=== PATIENT | female | born 1995 | race Caucasian/White ===

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

== ENCOUNTER 2017-01-14 10:24 | Emergency (ER) | payer OTHER ==
[2017-01-14] MEDS ORDERED: Ondansetron INJ* 2 MG/ML VIAL IV ONE (11:00)
[2017-01-14] MEDS: NS 0.9% 1000 ML* 2,000 ML IV ONE (12:04)
[2017-01-14 12:15] LABS: Hematocrit 39 % (35-47); Hemoglobin 13.1 g/dl (12.0-16.0); Mean Corpuscular HGB Conc 34 g/dl (31-36); Mean Corpuscular Hemoglobin 30 pg (27-31); Mean Corpuscular Volume 90 fL (80-97); Mean Platelet Volume 8 um3 (7.4-10.4); Red Blood Count 4.33 10^6/ul (4.0-5.4); Red Cell Distribution Width 13 % (10.5-15); White Blood Count 22.4 10^3/ul (3.5-10.8)
[2017-01-14 12:23] LABS: Add Diff/Slide Review? Slide Review Added; Comments Flag Yes
[2017-01-14 12:29] LABS: ALT 17 U/L (7-52); AST 17 U/L (13-39); Albumin 4.2 g/dL (3.2-5.2); Alkaline Phosphatase 52 U/L (34-104); Anion Gap 10 mmol/L (2-11); BUN/Creatinine Ratio 22.6 (8-20); Blood Urea Nitrogen 14 mg/dL (6-24); C Reactive Protein 16.39 mg/L (< 5.00); CO2 Carbon Dioxide 22 mmol/L (22-32); Calcium 9.7 mg/dL (8.6-10.3); Chloride 100 mmol/L (101-111); EGFR African American 159.5 (>60); Globulin 3.5 g/dL (2-4); Glucose 106 mg/dL (70-100); Lipase < 10 U/L (11.0-82.0); Potassium 3.3 mmol/L (3.5-5.0); Sodium 132 mmol/L (133-145); Total Protein 7.7 g/dL (6.4-8.9)
[2017-01-14 12:42] LABS: Immature Granulocytes 15 % (0-9); Neutrophil % 83 % (38-83); RBC Morphology Normal (Normal)
[2017-01-14] MEDS ORDERED: Potassium Chlor TAB* 20 MEQ TAB.ER PO ONE (13:17)
[2017-01-14 14:58] LABS: Urine Bilirubin Negative (Negative); Urine Glucose Negative (Negative); Urine Nitrite Negative (Negative)
[2017-01-14] MEDS ORDERED: NS 0.9% 1000 ML* 1,000 ML IV SCH (15:30)
[2017-01-14 17:02] LABS: Hematocrit 31 % (35-47); Hemoglobin 10.5 g/dl (12.0-16.0); Mean Corpuscular HGB Conc 34 g/dl (31-36); Mean Corpuscular Hemoglobin 31 pg (27-31); Mean Corpuscular Volume 91 fL (80-97); Mean Platelet Volume 9 um3 (7.4-10.4); Red Blood Count 3.41 10^6/ul (4.0-5.4); Red Cell Distribution Width 13 % (10.5-15); White Blood Count 18.3 10^3/ul (3.5-10.8)
[2017-01-14 18:10] VITALS: BP 115/56
--- NOTE | 2017-01-15 15:18 | ED ---
Kim Pepe Nilda, scribed for Alpesh Young MD on 01/14/17 at 1405 . GI/ HPI - HPI Summary HPI Summary: This patient is a 21 year old F presenting to [facility] accompanied by boyfriend with a chief complaint of vomiting since 0300 today. Patient reports diarrhea, nausea, and diffuse abdominal pain, but denies vaginal bleeding. The patient rates the pain 9/10 in severity. Symptoms aggravated and alleviated by nothing. Pt states she is 16 weeks with her second . First resulted in miscarriage. - History of Current Complaint Chief Complaint: EDNauseaVomitDiarrh Time Seen by Provider: 01/14/17 11:03 Stated Complaint: VOMITING Hx Obtained From: Patient Hx Last Menstrual Period: 09/20/16 Onset/Duration: Started Hours Ago, Still Present Timing: Intermittent Current Severity: Severe Pain Intensity: 9 Location of Pain: Diffuse Associated Signs and Symptoms: Positive: Other: - N/V/D, Abd pain; negative vaginal bleeding. Aggravating Factor(s): Nothing Alleviating Factor(s): Nothing - Allergy/Home Medications Allergies/Adverse Reactions: Allergies Allergy/AdvReac Type Severity Reaction Status Date / Time No Known Allergies Allergy Verified 01/14/17 10:39 PMH/Surg Hx/FS Hx/Imm Hx Endocrine/Hematology History: Denies: Hx Anticoagulant Therapy, Hx Blood Disorders, Hx Diabetes, Hx Thyroid Disease, Hx Anemia, Hx Unexplained Bleeding Cardiovascular History: Denies: Hx Hypertension Respiratory History: Reports: Hx Asthma Denies: Hx Chronic Obstructive Pulmonary Disease (COPD) GI History: Denies: Hx Ulcer History: Denies: Hx Renal Disease Musculoskeletal History: Reports: Other Musculoskeletal History - RIGHT ANKLE FRACTURE; Rt wrist ganglion cyst removed by Vazquez Sensory History: Reports: Hx Contacts or Glasses - GLASSES Denies: Hx Hearing Aid Opthamlomology History: Reports: Hx Contacts or Glasses - GLASSES Neurological History: Reports: Hx Migraine Psychiatric History: Reports: Hx Anxiety - NO MEDICATION, Hx of Violent Episodes Against Others Denies: Hx Eating Disorder, Hx Substance Abuse - Surgical History Surgery Procedure, Year, and Place: GANGLION CYST REMOVED-06/2015. Rt wrist surgery x2 Hx Anesthesia Reactions: No Infectious Disease History: Unable to Obtain/Confirm Infectious Disease History: Denies: Hx Clostridium Difficile, Hx Hepatitis, Hx Human Immunodeficiency Virus (HIV), Hx of Known/Suspected MRSA, Hx Shingles, Hx Tuberculosis, Hx Known/ Suspected VRE, Hx Known/Suspected VRSA, History Other Infectious Disease, Traveled Outside the [place] in Last 30 Days - Family History Known Family History: Positive: Hypertension, Other - aunt - anxiety Negative: Cardiac Disease, Diabetes Family History: mood d/o, bipolar d/o, anxiety d/o, depression - Social History Alcohol Use: None Hx Substance Use: No - tried marijuana once in past Substance Use Type: Reports: None Hx Tobacco Use: No Smoking Status (MU): Never Smoked Tobacco Review of Systems Positive: Abdominal Pain, Vomiting, Diarrhea, Nausea Positive: other - 16 weeks ; negative vaginal bleeding All Other Systems Reviewed And Are Negative: Yes Physical Exam - Summary Physical Exam Summary: VITAL SIGNS: Reviewed. GENERAL: Patient is a well-developed and nourished female who is lying comfortable in the stretcher. Patient is not in any acute respiratory distress. HEAD AND FACE: Normocephalic and atraumatic. EYES: PERRLA, EOMI x 2, No injected conjunctiva. EARS: Hearing grossly intact. Ear canals and tympanic membranes are WNL. MOUTH: Oropharynx within normal limits. NECK: Supple, trachea is midline, no adenopathy, no JVD. CHEST: Symmetric, no tenderness at palpation LUNGS: Clear to auscultation bilaterally. No wheezing or crackles. CVS: RRR, S1 and S2 present, no murmurs or gallops appreciated. ABDOMEN: Soft, non-tender. Abd distention below umbilicus secondary to . Positive bowel sounds. No rebound no guarding, and no masses palpated. No abdominal bruit or pulsations. EXTREMITIES: FROM in all major joints, no edema, no cyanosis or clubbing. NEURO: Alert and oriented x 3. No acute neurological deficits. Speech is normal. SKIN: Dry and warm Triage Information Reviewed: Yes Vital Signs On Initial Exam: Initial Vitals Temp Pulse Resp BP Pulse Ox 98.5 F 120 16 112/59 97 01/14/17 10:39 01/14/17 10:39 01/14/17 10:39 01/14/17 10:39 01/14/17 10:39 Vital Signs Reviewed: Yes Diagnostics - Vital Signs Vital Signs Temp Pulse Resp BP Pulse Ox 01/14/17 13:46 102 105/44 100 01/14/17 13:30 104 100 01/14/17 13:00 97 110/46 100 01/14/17 12:30 97 103/60 100 01/14/17 12:00 109 118/73 98 01/14/17 11:40 98.3 F 01/14/17 11:33 115 98 01/14/17 11:32 108/78 01/14/17 10:39 98.5 F 120 16 112/59 97 - Laboratory Lab Results: Lab Results 01/14/17 01/14/17 Range/Units 12:05 12:05 WBC 22.4 H (3.5-10.8) 10^3/ul RBC 4.33 (4.0-5.4) 10^6/ul Hgb 13.1 (12.0-16.0) g/dl Hct 39 (35-47) % MCV 90 (80-97) fL MCH 30 (27-31) pg MCHC 34 (31-36) g/dl RDW 13 (10.5-15) % Plt Count 229 (150-450) 10^3/ul MPV 8 (7.4-10.4) um3 Immature Gran % (Auto) 15 H (0-9) % Neut % (Auto) 97.0 H (38-83) % Lymph % (Auto) 1.2 L (25-47) % Calhoun % (Auto) 1.5 (1-9) % Eos % (Auto) 0.1 (0-6) % Baso % (Auto) 0.2 (0-2) % Absolute Neuts (auto) 21.8 H (1.5-7.7) 10^3/ul Absolute Lymphs (auto) 0.3 L (1.0-4.8) 10^3/ul Absolute Monos (auto) 0.3 (0-0.8) 10^3/ul Absolute Eos (auto) 0 (0-0.6) 10^3/ul Absolute Basos (auto) 0.1 (0-0.2) 10^3/ul Absolute Nucleated RBC 0 10^3/ul Neutrophils % 83 (38-83) % Band Neutrophils % 15 H (0-8) % Monocytes % 2 (0-13) % Nucleated RBC % 0 Normal RBC Morphology Normal (Normal) Sodium 132 L (133-145) mmol/L Potassium 3.3 L (3.5-5.0) mmol/L Chloride 100 L (101-111) mmol/L Carbon Dioxide 22 (22-32) mmol/L Anion Gap 10 (2-11) mmol/L BUN 14 (6-24) mg/dL Creatinine 0.62 (0.51-0.95) mg/dL Est GFR ( Amer) 159.5 (>60) Est GFR (Non-Af Amer) 124.0 (>60) BUN/Creatinine Ratio 22.6 H (8-20) Glucose 106 H (70-100) mg/dL Calcium 9.7 (8.6-10.3) mg/dL Total Bilirubin 0.40 (0.2-1.0) mg/dL AST 17 (13-39) U/L ALT 17 (7-52) U/L Alkaline Phosphatase 52 (34-104) U/L C-Reactive Protein 16.39 H (< 5.00) mg/L Total Protein 7.7 (6.4-8.9) g/dL Albumin 4.2 (3.2-5.2) g/dL Globulin 3.5 (2-4) g/dL Albumin/Globulin Ratio 1.2 (1-3) Lipase < 10 L (11.0-82.0) U/L Result Diagrams: 01/14/17 15:40 01/14/17 12:05 Lab Statement: Any lab studies that have been ordered have been reviewed, and results considered in the medical decision making process. Re-Evaluation - Re-Evaluation First Eval Re-Evaluation Time: 14:00 Comment: Pt no longer feels nauseous but abd cramps remain. GIGU Course/Dx - Course Course Of Treatment: This patient is a 21 year old F presenting to [facility] accompanied by boyfriend with a chief complaint of vomiting since 0300 today. Patient reports diarrhea, nausea, and diffuse abdominal pain, but denies vaginal bleeding. The patient rates the pain 9/10 in severity. Symptoms aggravated and alleviated by nothing. Pt states she is 16 weeks with her second . First resulted in miscarriage. In the ED course , the patient was given IV fluids, Zofran, and Potassium Chlor. Pt does not want to wait for consult with Dr. Guzmán. Patient no longer has Nausea and Vomiting. She has been here for almost 6 hours and has had no diarrhea. WBC count decreased from 23 to 18 which I think may be because of gastroenteritis. She was advised to return to ED if she develops fever, chills, N/V, abd pain, or vaginal bleeding. The pt is hemodynamically stable, alert and oriented x3. Patient will be D/C with a Dx of nausea, vomiting, diarrhea, and pregancy and a follow up with [facility]. I discussed all the findings and test results with the patient. Patient was instructed to return to the emergency room immediately if any of the symptoms return or worsens. Plan of care was discussed with the patient and understands and agrees. All questions were answered at patient satisfaction. There were no further complaints or concerns. After patient left I discussed the case with Dr. Guzmán and agrees with management and disposition. - Diagnoses Provider Diagnoses: Nausea and vomiting during , Diarrhea, Discharge - Discharge Plan Condition: Stable Disposition: HOME Prescriptions: Doxylamine/Pyridoxine(NF) [Diclegis (NF)] 1 tab PO BID PRN #15 tab PRN Reason: Vomiting Patient Education Materials: Nausea and Vomiting in (ED), Acute Diarrhea (ED) Forms: *Work Release Referrals: Too Frank NP [Primary Care Provider] - 1 Week Additional Instructions: Follow up with your [facility] this week. RETURN TO THE EMERGENCY DEPARTMENT FOR CHANGING OR WORSENING SYMPTOMS. The documentation as recorded by the Kim mckenna Nilda accurately reflects the service I personally performed and the decisions made by me, Alpesh Young MD.
== END 2017-01-14 18:11 | disposition home or self-care (01) ==
LOC: ED 10:24
DX: O21.0 Mild hyperemesis gravidarum (principal); O26.892 Other specified pregnancy related conditions, second trimester; Z3A.16 16 weeks gestation of pregnancy; R19.7 Diarrhea, unspecified
CPT/HCPCS: 36415; 80053; 81003; 83690; 85025; 86140; 96360; 96374; 99282; A9270-GY; J2405

== ENCOUNTER 2017-06-21 09:35 | Inpatient (IN) | payer MEDICAID, OTHER ==
--- NOTE | 2017-06-21 12:26 | HP ---
General Information - General Information Maternal Age: 22 Grav: 2 Para: 0 SAB: 1 IEA: 0 Estimated Due Date: 06/27/17 Determined By: LMP Gestational Age in Weeks and Days: 39 Weeks and 1 Days Maternal Blood Type and Rh: A Positive - Results this Serology/RPR Result: Non-Reactive Rubella Result: Immune HBsAg Result: Negative HIV Result: Negative GBS Culture Result: Negative Past Medical History Delivery History: See Records Pertinent Past Medical History: See Records Past Medical History Comment: asthma Pertinent Past Surgical History: See Records Past Surgical History Comment: ganglion cysts x 2 removed Pertinent Family History: See Records - CVD, Emphysema Review of Systems Constitutional: Comfortable CV Complaint: No Respiratory: Shortness of Breath: No Gastrointestinal: No Nausea/Vomiting, Normal Bowel Movement Genitourinary: Leaking Fluid, No Dysuria, No Bleeding Musculoskeletal: Back Pain Neurological: No Headache, No Visual Changes Movement: Normal Exam Allergies/Adverse Reactions: Allergies No Known Allergies Allergy (Verified 06/21/17 09:57) T:97.6, P:115, R:17, BP:138/77, O2:100 Lab Values - Entire Visit: Laboratory Tests 06/21/17 09:50 Vag Amniotic Fld Detect Positive - Measurements Height: 5 ft 5 in Weight: 184 lb Weight in lbs: 184 Body Mass Index (BMI): 30.6 Pre- Weight: 163 lb Weight Gained This : 21 lbs and 0 ozs - Exam Abdomen: No Upper Quadrant Pain Breast: Breast Exam Deferred CVA: No CVA Tenderness Extremities: No Edema Heart: Normal Rhythm/Heart Sounds HEENT: No Significant Findings Lungs: Clear Bilaterally Rectal: Rectal Exam Deferred Reflexes: DTR 2+ Thyroid: No Thyromegaly - Abdominal Exam Abdomen Exam: Fundal Height Consistent with Dates - Ultrasound/Biophysical Profile Ultrasound Status: Not Done Targeted Exam Findings Membrane Status: SROM Amniotic Fluid Evaluation: Positive ROM Plus Bleeding/Discharge: None EFM Findings - External Monitor Findings Baseline Heart Rate: 145 External Monitor Findings: Accelerations Present, No Pattern of Variable or Late Decelerations, Variability Moderate, Baseline Stable Contractions: Irregular, < 45 Seconds Assessment/Plan - Reason for Visit Reason for Visit: SROM - Plan Plan: Early Labor, Cervical Ripening - Date/Time of Admission Date of Admission: 06/21/17 Time of Admission: 12:00
[2017-06-21] MEDS ORDERED: Misoprostol TAB* 100 MCG ONE (16:55)
--- NOTE | 2017-06-21 17:26 | PN ---
Progress Note - Progress Note Date of Service: 06/21/17 SOAP: Subjective: Pt reports contractions are still very irregular and haven't increased in intensity or frequency. Pt reports continued LOF and positive FM. Pt denies fever, or vaginal bleeding. Reviewed risks versus benefits of augmentation and pt elects to continue with misoprostol sublingual. Objective: []127/63, P: 100bpm FHT: Baseline 145bpm, +accels, -decels, mod variability, ctx irregular. Assessment: []22 y.o. 39w 1 d EGA, PROM, GBS negative. NST Cat 1 Plan: []1) 50mcg misoprostol sublingual 2) Reviewed Risks/Benefits of augmentation of labor 3) Advised pt to ambulate after initial hour of observation 4) Reevaluate PRN
[2017-06-21] MEDS ORDERED: Buffered Lidocaine 0.9% SYRIN* 5 ML/SYR SYRINGE ONE (18:04)
[2017-06-21 18:41] LABS: ABS Basophils 0.1 10^3/ul (0-0.2); ABS Eosinophils 0.4 10^3/ul (0-0.6); ABS Lymphocytes 2.2 10^3/ul (1.0-4.8); ABS Monocytes 1.5 10^3/ul (0-0.8); ABS Neutrophils 15.6 10^3/ul (1.5-7.7); ABS Nucleated RBC 0 10^3/ul; Hematocrit 37 % (35-47); Hemoglobin 12.2 g/dl (12.0-16.0); Lymphocyte % 11.2 % (25-47); Mean Corpuscular HGB Conc 33 g/dl (31-36); Mean Corpuscular Hemoglobin 30 pg (27-31); Mean Corpuscular Volume 90 fL (80-97); Mean Platelet Volume 8.8 um3 (7.4-10.4); Nucleated Red Blood Cells % 0; Platelet Count 252 10^3/ul (150-450); Red Blood Count 4.07 10^6/ul (4.0-5.4); Red Cell Distribution Width 13 % (10.5-15); White Blood Count 19.8 10^3/ul (3.5-10.8)
[2017-06-21] MEDS ORDERED: fentaNYL* 50 MCG/ML 2 ML VIAL (100 MCG VIAL) IV SLOW PU PRN (19:33)
[2017-06-21] MEDS ORDERED: fentaNYL* 50 MCG/ML 2 ML VIAL (100 MCG VIAL) ONE (19:36)
[2017-06-21] MEDS ORDERED: OBEPIDURAL* 250 ML EPIDURAL ONE (19:50)
--- NOTE | 2017-06-21 19:50 | PN ---
Progress Note - Progress Note Date of Service: 06/21/17 Note: S: Pt requesting pain medication and epidural. Pt crying through contractions, reporting increased pain on the left side. O: BP: 127/63 P:100 T:98.5 Cervix: 3/80/-1 head well applied, cervix midline FHT: Baseline 145bpm, +accels, -decels, mod. variability. Ctx q 3-4 min A: 22 y.o. 39w1d EGA early labor P: 1) Fentanyl 25mcg IV slow push 2) Epidural 3) Position changes 4) Reevaluate PRN
[2017-06-21] MEDS ORDERED: Sodium Citrate/Citric Acid* 15 ML UDC PO PRN (20:12)
[2017-06-21] MEDS ORDERED: EPHEDrine (Pressors)* 50 MG/ML VIAL IV PUSH PRN (20:12)
[2017-06-21] MEDS ORDERED: Famotidine TAB* 20 MG PO PRN (20:12)
[2017-06-21] MEDS ORDERED: Phenylephrine IV* 40 MCG/ML 10 ML SYRINGE IV PUSH PRN (20:12)
[2017-06-21] MEDS ORDERED: OBEPIDURAL* 250 ML EPIDURAL SCH (21:00)
--- NOTE | 2017-06-22 02:52 | PN ---
Progress Note - Progress Note Date of Service: 06/21/17 Note: S: Pt reports increased pressure in back and some in vagina. Pt denies pain at this time but is "feeling more". O: T:98.2, BP: 120/70 Cervix: 7/90/-1 FHT: 140bpm, +accels, -decels, mod variability. Ctx q 4-5 min. A: 22 y.o. at 39w2d EGA active labor, inadequate ctx. NST:cat 1 P: 1) Anesthesiologist called to correct air in line 2) Pitocin once epidural is functioning again 3) Position changes to encourage decent 4) Reevaluate PRN.
[2017-06-22] MEDS ORDERED: Oxytocin in LR* 20 UNITS/1,000 ML BAG IVPB SCH ×2 (03:00→12:00)
--- NOTE | 2017-06-22 08:19 | PN ---
Progress Note - Progress Note Date of Service: 06/22/17 SOAP: Subjective: []Pt reports a little pressure. Objective: []BP: 128/71, P:105, R:18, T:98.8 Cervix: 10/100/+1 FHT: 130bpm, +accels, mod variability, early decels and occasional variable decels, ctx q 3 min. Assessment: []22 y.o. at 39w 2 d pushing, VSS Plan: 1) Continue coached pushing 2) Position changes PRN 3) Reevaluate PRN []
[2017-06-22] MEDS ORDERED: Acetaminophen TAB* 325 MG PO PRN (11:02)
[2017-06-22] MEDS ORDERED: Misoprostol TAB* 200 MCG PR ONE (11:02)
[2017-06-22] MEDS ORDERED: Glycerin ADULT SUPP PR PRN (11:02)
[2017-06-22] MEDS: Dibucaine 1% 28.35 GM TUBE PR PRN (12:24)
[2017-06-22] MEDS: Witch Hazel PAD* JAR TOPICAL PRN (12:24)
[2017-06-22] MEDS ORDERED: Simethicone TAB* 80 MG TAB.CHEW PO SCH (12:30)
[2017-06-22] MEDS: Docusate CAP* 100 MG PO SCH ×2 (15:27→21:45)
[2017-06-23 07:11] LABS: Hematocrit 28 % (35-47); Hemoglobin 9.3 g/dl (12.0-16.0); Mean Corpuscular HGB Conc 33 g/dl (31-36); Mean Corpuscular Hemoglobin 30 pg (27-31); Mean Corpuscular Volume 90 fL (80-97); Mean Platelet Volume 8.3 um3 (7.4-10.4); Platelet Count 186 10^3/ul (150-450); Red Blood Count 3.11 10^6/ul (4.0-5.4); Red Cell Distribution Width 13 % (10.5-15); White Blood Count 20.5 10^3/ul (3.5-10.8)
[2017-06-23 07:33] LABS: ABS Basophils 0.1 10^3/ul (0-0.2); ABS Eosinophils 0.3 10^3/ul (0-0.6); ABS Lymphocytes 2.8 10^3/ul (1.0-4.8); ABS Monocytes 1.6 10^3/ul (0-0.8); ABS Neutrophils 15.9 10^3/ul (1.5-7.7); ABS Nucleated RBC 0 10^3/ul; Eosinophil % 1.3 % (0-6); Lymphocyte % 13.4 % (25-47); Nucleated Red Blood Cells % 0
[2017-06-23] MEDS: Ibuprofen TAB* 600 MG PO PRN (08:19)
[2017-06-23] MEDS: Docusate CAP* 100 MG PO SCH ×3 (08:19→19:55)
[2017-06-23] MEDS: Ferrous Gluconate TAB* 324 MG TAB PO SCH ×2 (08:19→19:55)
[2017-06-23] MEDS: Dibucaine 1% 28.35 GM TUBE PR PRN (12:13)
[2017-06-24 08:08] VITALS: BP 105/55
[2017-06-24] MEDS: Dibucaine 1% 28.35 GM TUBE PR PRN (08:54)
[2017-06-24] MEDS: Ibuprofen TAB* 600 MG PO PRN (08:54)
[2017-06-24] MEDS: Docusate CAP* 100 MG PO SCH (08:54)
[2017-06-24] MEDS: Witch Hazel PAD* JAR TOPICAL PRN (08:54)
[2017-06-24] MEDS: Ferrous Gluconate TAB* 324 MG TAB PO SCH (08:57)
== END 2017-06-24 12:54 | disposition home or self-care (01) | DRG 560 ==
LOC: MCHOBOUT 09:35 → MCHOB 11:59
PROVIDERS: ADMIT Midwife; ATTEND Obstetrics & Gynecology
PROC: 4A1HX4Z Monitoring of Products of Conception, Cardiac Electrical Activity, External Approach (ICD-10-PCS; principal; 2017-06-22)
PROC: 10E0XZZ Delivery of Products of Conception, External Approach (ICD-10-PCS; 2017-06-22)
PROC: 0HQ9XZZ Repair Perineum Skin, External Approach (ICD-10-PCS; 2017-06-22)
PROC: 0UQMXZZ Repair Vulva, External Approach (ICD-10-PCS; 2017-06-22)
DX: O42.02 Full-term premature rupture of membranes, onset of labor within 24 hours of rupture (principal); O70.0 First degree perineal laceration during delivery; Z83.6 Family history of other diseases of the respiratory system; Z3A.39 39 weeks gestation of pregnancy; Z37.0 Single live birth; O90.81 Anemia of the puerperium; O71.82 Other specified trauma to perineum and vulva; O76 Abnormality in fetal heart rate and rhythm complicating labor and delivery
CPT/HCPCS: 36415; 84112; 85025; 86850; 86900; 86901; A9270-GY; J3010; S0191

== ENCOUNTER 2017-12-31 15:45 | Emergency (ER) | payer MEDICAID, OTHER ==
[2017-12-31 16:08] VITALS: BP 141/81
--- NOTE | 2017-12-31 16:36 | ED ---
Skin Complaint - HPI Summary HPI Summary: Pt is a 22 y/o female who presents to the ED c/o abscess. She states she was recently cleaning off spider webs, so she thinks she was bitten by a spider twice. Pt has two red areas on the right side of her abdomen, with one larger than the other. She tried to pop the larger abscess, which made it worse. Pt states the abscess has dark yellow discharge and is painful. She denies any IV drug use. - History of Current Complaint Chief Complaint: EDRashSkinAbscess Time Seen by Provider: 12/31/17 16:24 Stated Complaint: SPIDER BITE Hx Obtained From: Patient Hx Last Menstrual Period: 09/20/16 Timing: Constant Current Severity: Severe Pain Intensity: 9 Pain Scale Used: 0-10 Numeric Skin Location: Abdomen - right side Character: Swelling, Pain, Redness Aggravating Symptom(s): Touch, Other: - Trying to "pop" Associated Signs & Symptoms: Negative Related History: Insect Bite/Sting - Possible spider bite - Allergy/Home Medications Allergies/Adverse Reactions: Allergies Allergy/AdvReac Type Severity Reaction Status Date / Time No Known Allergies Allergy Verified 12/31/17 16:08 PMH/Surg Hx/FS Hx/Imm Hx Endocrine/Hematology History: Reports: Hx Anemia - during Denies: Hx Anticoagulant Therapy, Hx Blood Disorders, Hx Diabetes, Hx Thyroid Disease, Hx Unexplained Bleeding Cardiovascular History: Denies: Hx Hypertension, Other Cardiovascular Problems/Disorders Respiratory History: Reports: Hx Asthma - rescue medication Denies: Hx Chronic Obstructive Pulmonary Disease (COPD), Other Respiratory Problems/Disorders GI History: Denies: Hx Gastroesophageal Reflux Disease, Hx Hiatal Hernia, Hx Ulcer, Other GI Disorders History: Denies: Hx Renal Disease, Other Problems/Disorders - Vaginal delivery of 06/22/17 Musculoskeletal History: Reports: Other Musculoskeletal History - RIGHT ANKLE FRACTURE; Rt wrist ganglion cyst removed x2 by Vazquez Sensory History: Denies: Hx Contacts or Glasses - has glasses, doesn't wear them, Hx Hearing Aid Opthamlomology History: Denies: Hx Contacts or Glasses - has glasses, doesn't wear them Neurological History: Reports: Hx Migraine Denies: Other Neuro Impairments/Disorders Psychiatric History: Reports: Hx Anxiety - no medication, Hx of Violent Episodes Against Others Denies: Hx Eating Disorder, Hx Substance Abuse - Surgical History Surgery Procedure, Year, and Place: GANGLION CYST REMOVED RIGHT WRIST -06/2015, 05/2016 Hx Anesthesia Reactions: No Infectious Disease History: No Infectious Disease History: Denies: Hx Clostridium Difficile, Hx Hepatitis, Hx Human Immunodeficiency Virus (HIV), Hx of Known/Suspected MRSA, Hx Shingles, Hx Tuberculosis, Hx Known/ Suspected VRE, Hx Known/Suspected VRSA, History Other Infectious Disease, Traveled Outside the [place] in Last 30 Days - Family History Known Family History: Positive: Hypertension, Other - mood d/o, bipolar d/o, anxiety d/o, depression Negative: Cardiac Disease, Diabetes - Social History Alcohol Use: None Hx Substance Use: No - tried marijuana once in past Substance Use Type: Reports: None Hx Tobacco Use: Yes Smoking Status (MU): Current Some Day Smoker Type: Cigarettes Review of Systems Negative: Fever Positive: Other - 2 red abscesses All Other Systems Reviewed And Are Negative: Yes Physical Exam - Summary Physical Exam Summary: Appearance: Well appearing, no pain distress Skin: warm, dry, reflects adequate perfusion, 6 cm x 2.5 cm area of redness on right flank with 1 cm x 2 cm central area of induration, on US small area of free fluid, 1 cm x 1.5 cm erythema with central excoriation just above larger area, multiple spots of ecchymosis on right arm, possible track terry Head/face: normal Eyes: EOMI, SHAYE ENT: mucous membranes moist Neck: supple, non-tender Respiratory: CTA, breath sounds present Cardiovascular: mildly tachycardic, pulses symmetrical Abdomen: non-tender, soft Bowel Sounds: present Musculoskeletal: normal, strength/ROM intact Neuro: normal, sensory motor intact, A&Ox3 Triage Information Reviewed: Yes Vital Signs On Initial Exam: Initial Vitals Temp Pulse Resp BP Pulse Ox 99.5 F 113 17 141/81 99 12/31/17 16:05 12/31/17 16:05 12/31/17 16:05 12/31/17 16:05 12/31/17 16:05 Vital Signs Reviewed: Yes Procedures - Incision and Drainage Right Abdomen Anesthesia: Lidocaine - 3 cc 1% Instrument(s): Scalpel - 11 blade, two separate small incisions Packing: Other - No packing due to small size of incisions. ? small amt of sebum. Small amt of purulence out Diagnostics - Vital Signs Vital Signs Temp Pulse Resp BP Pulse Ox 12/31/17 16:05 99.5 F 113 17 141/81 99 - Laboratory Lab Statement: Any lab studies that have been ordered have been reviewed, and results considered in the medical decision making process. Course/Dx - Course Course Of Treatment: Ultrasound-guided incision and drainage of skin abscess possibly MRSA. Clindamycin ordered. Dressed with dry dressing here. Follow- up with primary care physician. - Differential Diagnoses - Skin Complaint Differential Diagnoses: Other - MRSA, infected cyst, abscess - Diagnoses Provider Diagnoses: Abdominal wall abscess Discharge - Sign-Out/Discharge Documenting (check all that apply): Patient Departure - Discharge - Discharge Plan Condition: Improved Disposition: HOME Prescriptions: Clindamycin Cap(NF) [Clindamycin Cap 300 mg Cap(NF)] 300 mg PO Q6H #28 cap Patient Education Materials: Abscess (ED) Referrals: Too Frank, [employer]ELOPER [Primary Care Provider] - Additional Instructions: Dressed with gauze for the next 1-2 days. Warm compresses to the area several times per day. Return with increasing redness, warmth, high fevers, vomiting, worse, new symptoms or other concerns as discussed. Call your doctor first thing in the morning to have a recheck done in the next 2 days' time. Tylenol, ibuprofen as needed for discomfort. - Billing Disposition and Condition Condition: IMPROVED Disposition: Home - Attestation Statements Document Initiated by Dmitry: Yes Documenting Scribe: Sheridan Bañuelos Provider For Whom Dmitry is Documenting (Include Credential): Russ Meyers MD Scribe Attestation: Sheridan Pepe, scribed for Russ Meyers MD on 12/31/17 at 1706. Scribe Documentation Reviewed: Yes Provider Attestation: The documentation as recorded by the Sheridan mckenna accurately reflects the service I personally performed and the decisions made by me, Russ Meyers MD
[2017-12-31] MEDS ORDERED: Ondansetron ODT TAB* 4 MG PO ONE (16:42)
[2017-12-31] MEDS ORDERED: Naproxen TAB* 250 MG PO ONE (16:42)
== END 2017-12-31 16:53 | disposition home or self-care (01) ==
LOC: ED 15:45
DX: L02.211 Cutaneous abscess of abdominal wall (principal); J45.909 Unspecified asthma, uncomplicated; Z72.0 Tobacco use
CPT/HCPCS: 10060; 99282; A9270-GY

== ENCOUNTER 2018-08-04 12:51 | Emergency (ER) | payer OTHER ==
--- NOTE | 2018-08-04 14:47 | ED ---
Abdominal Pain/Female - HPI Summary HPI Summary: The patient is a 23 y/o F presenting to [facility] with a chief complaint of sudden onset aching abd pain at 0100 this morning. She reports the pain is intermittent and is not currently present. She additionally c/o chills, decreased appetite, and five episodes of watery diarrhea without blood. She denies nausea and vomiting. The pain is somewhat alleviated with BM. LNMP: spotting three weeks ago but has IUD. Hx of asthma; no abd hx. Current someday smoker, no EtOH, no substance use. - History of Current Complaint Chief Complaint: EDAbdPain Stated Complaint: ABD PAIN PER PT Hx Obtained From: Patient Hx Last Menstrual Period: 07/08 Onset/Duration: Sudden Onset, Lasting Hours - at 0100, Still Present Timing: Intermittent Episode Lasting - minutes or until BM Severity Initially: Moderate Severity Currently: None Pain Intensity: 0 Pain Scale Used: 0-10 Numeric Location: Diffuse Radiates: No Character: Other: - aching Aggravating Factor(s): Nothing Alleviating Factor(s): Bowel Movement Associated Signs and Symptoms: Positive: Decreased Appetite, Diarrhea - five episodes, Other: - chills. Negative: Blood in Stool, Nausea, Vomiting Allergies/Adverse Reactions: Allergies Allergy/AdvReac Type Severity Reaction Status Date / Time No Known Allergies Allergy Verified 08/04/18 12:57 PMH/Surg Hx/FS Hx/Imm Hx Endocrine/Hematology History: Reports: Hx Anemia - during Denies: Hx Anticoagulant Therapy, Hx Blood Disorders, Hx Diabetes, Hx Thyroid Disease, Hx Unexplained Bleeding Cardiovascular History: Denies: Hx Hypertension, Other Cardiovascular Problems/Disorders Respiratory History: Reports: Hx Asthma - rescue medication Denies: Hx Chronic Obstructive Pulmonary Disease (COPD), Other Respiratory Problems/Disorders GI History: Denies: Hx Gastroesophageal Reflux Disease, Hx Hiatal Hernia, Hx Ulcer, Other GI Disorders History: Denies: Hx Renal Disease, Other Problems/Disorders - Vaginal delivery of 06/22/17 Musculoskeletal History: Reports: Other Musculoskeletal History - RIGHT ANKLE FRACTURE; Rt wrist ganglion cyst removed x2 by Shukla Sensory History: Denies: Hx Contacts or Glasses - has glasses, doesn't wear them, Hx Hearing Aid Opthamlomology History: Denies: Hx Contacts or Glasses - has glasses, doesn't wear them Neurological History: Reports: Hx Migraine Denies: Other Neuro Impairments/Disorders Psychiatric History: Reports: Hx Anxiety - no medication, Hx of Violent Episodes Against Others Denies: Hx Eating Disorder, Hx Substance Abuse - Surgical History Surgery Procedure, Year, and Place: GANGLION CYST REMOVED RIGHT WRIST -06/2015, 05/2016 Hx Anesthesia Reactions: No Infectious Disease History: No Infectious Disease History: Denies: Hx Clostridium Difficile, Hx Hepatitis, Hx Human Immunodeficiency Virus (HIV), Hx of Known/Suspected MRSA, Hx Shingles, Hx Tuberculosis, Hx Known/ Suspected VRE, Hx Known/Suspected VRSA, History Other Infectious Disease, Traveled Outside the [place] in Last 30 Days - Family History Known Family History: Positive: Hypertension, Other - mood d/o, bipolar d/o, anxiety d/o, depression Negative: Cardiac Disease, Diabetes - Social History Alcohol Use: None Hx Substance Use: No - tried marijuana once in past Substance Use Type: Reports: None Hx Tobacco Use: Yes Smoking Status (MU): Current Some Day Smoker Type: Cigarettes Review of Systems Positive: Chills Positive: Abdominal Pain - diffuse aching, Diarrhea - five episodes, no diarrhea , Other - decreased appetite. Negative: Vomiting, Nausea All Other Systems Reviewed And Are Negative: Yes Physical Exam - Summary Physical Exam Summary: VITAL SIGNS: Reviewed. GENERAL: Patient is a well-developed and nourished female who is lying comfortable in the stretcher. Patient is not in any acute respiratory distress. HEAD AND FACE: Normocephalic and atraumatic. EYES: PERRLA, EOMI x 2, No injected conjunctiva. EARS: Hearing grossly intact. Ear canals and tympanic membranes are WNL. MOUTH: Oropharynx within normal limits. NECK: Supple, trachea is midline, no adenopathy, no JVD. CHEST: Symmetric, no tenderness at palpation LUNGS: Clear to auscultation bilaterally. No wheezing or crackles. CVS: RRR, S1 and S2 present, no murmurs or gallops appreciated. ABDOMEN: Soft, non-tender. No signs of distention. Positive bowel sounds. No rebound no guarding, and no masses palpated. No abdominal bruit or pulsations. EXTREMITIES: FROM in all major joints, no edema, no cyanosis or clubbing. NEURO: Alert and oriented x 3. No acute neurological deficits. Speech is normal. SKIN: Dry and warm. Triage Information Reviewed: Yes Vital Signs On Initial Exam: Initial Vitals Temp Pulse Resp BP Pulse Ox 98.8 F 118 14 139/87 99 08/04/18 12:54 08/04/18 12:54 08/04/18 12:54 08/04/18 12:54 08/04/18 12:54 Vital Signs Reviewed: Yes Diagnostics - Vital Signs Vital Signs Temp Pulse Resp BP Pulse Ox 08/04/18 12:54 98.8 F 118 14 139/87 99 - Laboratory Result Diagrams: 08/04/18 15:20 08/04/18 15:20 Lab Statement: Any lab studies that have been ordered have been reviewed, and results considered in the medical decision making process. Re-Evaluation - Re-Evaluation First Eval Re-Evaluation Time: 16:30 Change: Improved Comment: I discussed discharge home with the patient since symptoms have improved. Abdominal Pain Fem Course/Dx - Course Course Of Treatment: The patient is a 23 y/o F presenting to [facility] with a chief complaint of sudden onset aching abd pain at 0100 this morning. She reports the pain is intermittent and is not currently present. She additionally c/o chills, decreased appetite, and five episodes of watery diarrhea without blood. She denies nausea and vomiting. The pain is somewhat alleviated with BM. LNMP: spotting three weeks ago but has IUD. Hx of asthma; no abd hx. Current someday smoker, no EtOH, no substance use. Blood tests without any significant abnormality except for WBCs of 12.5, sodium of 134, glucose of 114, CRP of 30.25 , and lipase of 10. Urinalysis is negative for UTI. In the ED course the patient was observation only because the patient declined any IV access. The patient did not have any nausea or vomiting. Multiple abdominal exams the patient doesnt have any pain at this point. Patient also has not been able to provide a stool sample since the diarrhea has improved. While the patient was in the waiting room, the patient was eating and drinking without any symptoms. I discussed all the findings and test results with the patient and patients family member. They were instructed to return to the emergency room immediately if any of the symptoms return or worsen. They were explained the possibility of an early abdominal pathology such as appendicitis which was not detected at this time despite the physical exam and testing. Abdominal exam before discharge: Soft, NT. No signs of distention. BS present. No rebound, no guarding , and no masses palpated. Patient is alert and oriented and hemodynamically stable. Patient is to follow up with Cookie Padder in the next 24 hours. Patient and patients parents agree and understand. - Diagnoses Provider Diagnoses: Lower abdominal pain, Diarrhea Discharge - Sign-Out/Discharge Documenting (check all that apply): Patient Departure - Patient will be discharged home. Patient Received Moderate/Deep Sedation with Procedure: No - Discharge Plan Condition: Good Disposition: HOME Patient Education Materials: Acute Diarrhea (ED), Abdominal Pain (ED) Referrals: Too Frank [facility] [Primary Care Provider] - 3 Days Additional Instructions: Follow up with your primary care provider in 2-3 days. RETURN TO THE EMERGENCY DEPARTMENT FOR ANY NEW OR WORSENING SYMPTOMS. - Billing Disposition and Condition Condition: GOOD Disposition: Home - Attestation Statements Document Initiated by Dmitry: Yes Documenting Scribe: Beronica Zavala Provider For Whom Dmitry is Documenting (Include Credential): Dr. Alpesh Young MD Scribe Attestation: Beronica Pepe scribed for Dr. Alpesh Young MD on 08/05/18 at 1757. Scribe Documentation Reviewed: Yes Provider Attestation: The documentation as recorded by the Beronica mckenna accurately reflects the service I personally performed and the decisions made by me, Dr. Alpesh Young MD Status of [employer]chase Document: Viewed
[2018-08-04 15:28] LABS: ABS Monocytes 0.8 10^3/ul (0-0.8); ABS Neutrophils 10.5 10^3/ul (1.5-7.7); Eosinophil % 0.3 %; Hematocrit 39 % (35-47); Hemoglobin 13.4 g/dL (12.0-16.0); Lymphocyte % 8.3 %; Mean Corpuscular HGB Conc 34 g/dL (31-36); Mean Corpuscular Hemoglobin 30 pg (27-31); Mean Corpuscular Volume 87 fL (80-97); Platelet Count 261 10^3/uL (150-450); Red Blood Count 4.52 10^6 /uL (3.70-4.87); Red Cell Distribution Width 13 % (10-15); White Blood Count 12.5 10^3/uL (3.5-10.8)
[2018-08-04 15:48] LABS: Albumin 4.4 g/dL (3.2-5.2); Albumin/Globulin Ratio 1.3 (1-3); BUN/Creatinine Ratio 16.9 (8-20); C Reactive Protein 30.25 mg/L (<8.01); Calcium 9.5 mg/dL (8.6-10.3); EGFR African American 125.7 (>60); EGFR Non-African American 103.9 (>60); Globulin 3.3 g/dL (2-4); Potassium 3.5 mmol/L (3.5-5.0); Total Bilirubin 0.5 mg/dL (0.2-1.0); Total Protein 7.7 g/dL (6.4-8.9)
[2018-08-04 15:54] LABS: Urine Appearance Cloudy; Urine Bilirubin Negative (Negative); Urine Blood Negative (Negative); Urine Color Yellow; Urine Glucose Negative (Negative); Urine Ketones Negative (Negative); Urine Nitrite Negative (Negative); Urine Protein Negative (Negative); Urine Specific Gravity 1.033 (1.010-1.030); Urine Urobilinogen Negative (Negative)
[2018-08-04 16:45] VITALS: BP 136/74
== END 2018-08-04 16:44 | disposition home or self-care (01) ==
LOC: ED 12:51
DX: R10.30 Lower abdominal pain, unspecified (principal); R19.7 Diarrhea, unspecified; J45.909 Unspecified asthma, uncomplicated; Z72.0 Tobacco use
CPT/HCPCS: 36415; 80053; 81003; 83605; 83690; 85025; 86140; 99282

== ENCOUNTER 2019-04-02 13:46 | Emergency (ER) | payer OTHER ==
--- OUTSIDE RECORDS SUMMARY | 2019-04-02 13:55 | XMS REPORT | Continuity of Care Document ---
:1995 Author Organization [facility] Address [address] [place] [address] Phone Care Team Providers Name Role Phone Kalyani Jimenez Unavailable Unavailable Allergies, Adverse Reactions, Alerts Substance Reaction Status No Known Allergies Active Medications Medication Instructions Dosage Effective Status Comments Dates (start - stop) Metrogel Vaginal insert 1 37.5 MG - Active 0.75 % applicatorful by vaginal route every day at bedtime Liletta 19.5 Insert IU - Active mcg/24 hour (4 years) intrauterine device ALBUTEROL INHALER Not Available - Active (unknown strength) azithromycin 500 2 tabs po x 1 for - No Longer mg tablet infection ADVANCE Active RX azithromycin 500 2 tabs po x 1 for - No Longer mg tablet infection (#2) Active Problems Condition Effective Dates (start - Clinical Status Comments stop) Chlamydial infection, unspecified Human immunodeficiency virus - [HIV] counseling Chlamydial infection, unspecified Human immunodeficiency virus - [HIV] counseling Encounter for routine checking of intrauterine contracep dev Encntr screen for infections w sexl mode of transmiss Encounter for test, result negative Inflammatory disease of cervix uteri Encounter for screening for - human immunodeficiency virus Encntr screen for infections w sexl mode of transmiss Encounter for routine checking of intrauterine contracep dev Acute vaginitis Irregular menstruation, unspecified Postcoital and contact bleeding Dysmenorrhea, unspecified Human immunodeficiency virus - [HIV] counseling Encounter for screening for - human immunodeficiency virus Acute vaginitis Encounter for oth screening for malignant neoplasm of breast 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) w/o 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 Noninflammatory disorder of vagina, unspecified Dermatitis, unspecified Human immunodeficiency virus - [HIV] counseling Encounter for routine checking of intrauterine contracep dev Noninflammatory disorder of vagina, unspecified Encounter for routine checking of intrauterine contracep dev Candidiasis of vulva and vagina Encounter for elective termination of Encounter for insertion of intrauterine contraceptive device Encounter for test, result positive Encntr screen for dis of the bld/bld-form org/immun mechnsm Encntr screen for infections w sexl mode of transmiss Less than 8 weeks gestation of Encounter for ot general cnsl and advice on contraception Encounter for test, result positive Body mass index (BMI) 29.0-29.9, adult Encounter for test, result negative Encounter for initial prescription of contraceptive pills Human immunodeficiency virus - [HIV] counseling Encounter for test, result negative Acute vaginitis Encounter for initial prescription of contraceptive pills Encounter for prescription of emergency contraception Human immunodeficiency virus - [HIV] counseling Encounter for test, result negative Enctr srvlnc implantable subdermal contraceptive Encounter for ot general cnsl and advice on contraception Encounter for prescription of emergency contraception Irregular menstruation, unspecified Enctr srvlnc implantable subdermal contraceptive Encntr screen for infections w sexl mode of transmiss Enctr srvlnc implantable subdermal contraceptive Candidiasis of vulva and vagina Enctr srvlnc implantable subdermal contraceptive Encounter for insertion of intrauterine contraceptive device Encntr screen for infections w sexl mode of transmiss Encounter for ot general cnsl and advice on contraception Encounter for test, result negative Encounter for ot general cnsl and advice on contraception Irregular menstruation, unspecified Encntr screen for dis of the bld/bld-form org/immun mechnsm Encntr screen for infections w sexl mode of transmiss Encounter for surveillance of other contraceptives Encntr screen for dis of the bld/bld-form org/immun mechnsm Encounter for surveillance of other contraceptives Encounter for ot general cnsl and advice on contraception Encounter for initial prescription of other contraceptives Encntr screen for infections w sexl mode of transmiss Encounter for test, result negative Encounter for surveillance of injectable contraceptive Vascular headache, not elsewhere classified BCM Other, Start Family Planning Counseling Migraine with aura - Active Reviewed. MD Coleman positive - Active Procedures Procedure Date No information Results Test Name Date and Time Measure Units Reference Range Abnormal Flag Status Comments No information Advance Directives Directive Yes / No Effective Date File Name No information Encounters Encounter Practice Location Reason(s) Diagnoses Date Provider Providers Description For Visit Copied on Encounter [facility] [place] 3 Kalyani. [address], [place], [facility], [address] [address], [place]. [address] tel:[phone] , [place], [address] [place], [id number], [place] tel:[phone] [facility] Chlamydial Nov- Lainey Rico. [facility]erring [facility] [place] infection, [address] Provider: Southern unspecifiedHuma 9 , [place], [place], [address], [place], 620 [facility], [facility] immunodeficienc [place]. [address] y virus [HIV] St, [place], [place], [place], [place], [address].Consu [id number], lting [place] Provider: tel:[phone] [place] [id number] [facility] Chlamydial Nov- [facility] [place] infection, . [address] unspecified [address], [place], [place], [facility], [address] [address]. [address] tel:[phone] St, [place], [address] [place], [id number], [place] tel:[phone] [facility] Human Oct- Lainey Trisha. [facility]erring [facility] [place] immunodeficienc [address] Provider: Southern y virus [HIV] 9 , [place], [place], [address], [place], 620 [place], 620 nter for [place]. [address], [place], [address]. [place], intrauterine [id number], contracep [place] devEncntr tel:[phone] screen for [phone] infections w sexl mode of transmissEncoun ter for test, result negativeInflamm atory disease of cervix uteriEncounter for screening for human immunodeficienc y virus [facility] Encntr screen [place] Referring [facility] [place] for infections [facility] Provider: [facility] sexl mode of 9 Sueane. [address] Sueane [place] transmissEncoun [address], [place], [address] ter for routine [place], [place], [place] [address], [place], intrauterine tel:[phone] [address], [place], contracep [address] [place], [place], [id number], devAcute [address]. [place] vaginitisIrregu tel:[phone] tel:[phone] menstruation, unspecifiedPost coital and contact bleedingDysmeno rrhea, unspecifiedHuma n immunodeficienc y virus [HIV] counselingEncou nter for screening for human immunodeficienc y virus [facility] Acute vaginitis Maicol Referring [facility] [place] Delmy. [address] Provider: [facility] [address], [place], Raphaelidis [facility], 620 [address]. , [address] tel:[phone] [address], St, [place], [address] [place], [place], [address]. [id number], tel:[phone] [place] [phone] tel:[phone] [facility] Encounter for Yulisa Referring Parenthood [facility] screening Lawanda. 620 Provider: [facility] for malignant [address], [place] neoplasm of [place], [place], Yulisa J, [address] [place], 620 breastEncntr [address], [place]. [address] for story analyst exam tel:[phone] St, [place], [place], [place], (general) [address] [place], [address]. [place], (routine) w/o tel:[phone], abn 187015 [place] findingsNoninfl tel:[phone] ammatory [phone] disorder of vagina, unspecifiedDerm atitis, unspecified [facility] Human Lainey Rico. [facility]erring [facility] [place] immunodeficienc [address] Provider: [facility] y virus [HIV] 9 St, [place], [place], [address], [place], [address] [place], 620 nter for [place]. [address], [place], [place], [address]. [place], intrauterine [id number], contracep [place] devNoninflammat tel:[phone] [place] disorder of [id number] vagina, unspecified [facility] Encounter for Dec-0 Lainey Rico. Referring [facility] [place] routine [address] Provider: Southern checking of 8 [address], [place], [place], [address], [place], 620 [place], 620 contracep [place]. [address] dev[address]idiasis [address], [place], [place], [place], [address]. [place], vagina [id number], [place] tel:[phone] [facility] Encounter for Sep-2 Valerie [facility]erring [facility] [place] elective Yennifer. [address] Provider: [place] termination of [address], Yennifer [place] pregnancy[place]oun [place], [place], [facility], [address] [place] [address]. [address] insertion of tel:[phone] [address], [place], [place], intrauterine [address] [place], contraceptive [address]. [id number], device tel:[phone] [place] [phone] tel:[phone] [facility] Encounter for Sep- Yulisa Referring [facility] [place] test, Lawanda. 620 Provider: Southern result [address], [place] positiveEncntr [place], Yulisa J, 620 [place], 620 screen for dis [address], [place]. [address] of the tel:[phone] St, [place], St, [place], bld/[place] [address] [place], [address]. [place], org/immun tel:[phone], mechnsmEncntr [id number] [place] screen for tel:[phone] infections w [phone] sexl mode of transmissLess than [address]Encoun ter for oth general cnsl and advice on contraception [facility] Encounter for Sep-1 Yulisa Referring [facility] [place] test, 3-201 Lawanda. 620 Provider: [facility] result positive [address], [place], Yulisa J, 620 [facility], [facility] [address], [place]. [address] tel:[phone] St, [place], [place], [place], [address] [place], [address]. [place], tel:[phone], [id number] [place] tel:[phone] [facility] Body mass index Isaias-1 Kornblum Referring [facility] [place] (BMI) 8-201 Margot. [address] Provider: Domingo 29.0-29.9, [address], Margot [place] adultEncounter [place], [place] M, [facility], 620 for [address]. [address] test, result tel:[phone], [facility], negativeEncount [address] [place], [place] [address]. [id number], prescription of tel:[phone] [place] contraceptive [id number] tel:[phone] pills [phone] [facility] Human Aug- White Trisha. [facility] [place] immunodeficienc [address] Provider: Domingo y virus [HIV] 7 [facility], [place]SE [place], [address], [facility]. [facility], [facility] nter for [place]. [address] test, [facility], result negative [place], [id number], [place] tel:[phone] [facility] Acute vaginitis Isaias-2 [facility] [place] 2-Augia. [address], [place], [facility], 620 [address]. [address] tel:[phone] [facility], [address] [place], [id number], [place] tel:[phone] [facility] Encounter for Isaias-0 [facility] [place] initial 1201 Sherice. [place] prescription of 7 [address] [place] contraceptive , [place], [facility], 620 [place], [address], [address] for [place]. [facility], prescription of tel:[phone] [place], emergency [id number], contraception [place] tel:[phone] [facility] Human Lainey Rico. [facility] [place] immunodeficienc 1- [address] Provider: [facility] y virus [HIV] 7 [facility], NURSE [place], [address], [facility]. [place], 620 nter for [place]. [address] test, [facility], result negative [place], [id number], [place] tel:[phone] [facility] Enctr srvlnc Lainey Rico. [facility] [place] implantable 0-201 [address] [place] subdermal 7 [facility], [place], [address], [place], 620 counter for oth [place]. [address] general cnsl [facility], and advice on [place], contraceptionEn [id number], counter for [place] prescription of tel:[phone] emergency [phone] contraception [facility] Irregular May- [facility] [place] menstruation, 0-201 Sherice. Southern unspecifiedEnct 7 [address] [place] r srvlnc [facility], [facility], 620 [place], [address], [address] subdermal [place]. [facility], contraceptiveEn tel:[phone] [place], [place]ntr [place] [id number], infections w [place] sexl mode of tel:[phone] transmiss [phone] [facility] Enctr srvlnc Jan- Lainey Rico. [facility] [place] implantable 7 [address] [place] subdermal 6 , [place], [place] [address], [place], 620 ndidiasis of [place]. [address] vulva and [facility], vagina [place], [id number], [place] tel:[phone] [facility] Enctr srvlnc Dec- [facility] [place] implantable 4-201 Sherice. [place] subdermal 6 [address] [place] contraceptiveEn , [place], [place], 620 [place], [address], [address] insertion of [place]. [facility], intrauterine tel:[phone] [place], contraceptive [id number], deviceEncntr [place] screen for tel:[phone] infections w [phone] sexl mode of transmissEncoun ter for oth general cnsl and advice on contraception [facility] Encounter for [facility] [place] test, Kalyani. [address] result [address], [place] negativeEncount [place], [place], [place], 620 er for [place]th [address], [place]. [address] general cnsl tel:[phone] St, [place], [place] [address] [place], contraceptionIr [id number], regular [place] menstruation, tel:[phone] unspecified [phone] [facility] Encntr screen [facility] [place] for dis of the Margot. [address] bld/bld-form [address], [place] org/immun [place], [facility], 620 mechnsmEncntr [address]. [address] screen for tel:[phone] St, [place], [place] [address] [place], sexl mode of [id number], transmissEncoun [place] ter for tel:[phone] surveillance of [phone] other contraceptives [facility] Encntr screen Joe Salguero. [facility] [place] for dis of the [address] Southern bld/bld-form 5 St, [place], [place], [address]. [facility], 620 mechnsmEncounte tel:[phone] [place] [address] [address], [place], surveillance of [place], other [id number], contraceptives [place] tel:[phone] [facility] Encounter for [place] Referring [facility] [place] ot general Jimi. 620 Provider: [facility] cnsl and advice [address], Jimi [place], [place], [facility], 620 contraceptionEn [address]. [address] counter for tel:[phone] [address], St, [place], [place] [address] [place] [address]. [id number], other tel:[phone] [place] contraceptivesE 121096 tel:[phone] ncntr screen [phone] for infections w sexl mode of transmissEncoun ter for test, result negative [facility] Encounter for Chuyblaze Nieves. [facility] [place] surveillance of [address] [place] injectable [address] [place] contraceptive[place], [facility], 620 scular [address]. [address] headache, not tel:[phone] St, [place], elsewhere [address] [place], classified [id number], [place] tel:[phone] [facility] BCM Other, Sep-0 Joe Salguero. Referring [facility] [place] Start [address] Provider: Southern [address], [place], [place], [address]. Diaz, 620 [facility], [facility] tel:[phone] [address], [place], [place], [place], [address]. [place], tel:[phone], [id number] [place] lting tel:[phone] Provider: 171601 [place]SE [place] [facility]. [facility] Family Planning [facility] [place] Counseling [place]. [address], [place], [facility], 620 [address]. [address] tel:[phone] St, [place], [address] [place], [id number], [place] tel:[phone] [facility] 0Augia. [address] W Provider: [place] [address], N[place]SE [place], [place], [facility]. [place] [phone]. [address] tel:[phone] St, [place], [address] [place], [id number], [place] tel:[phone] Family History Family Member Diagnosis Age At Onset Sister No history of Stroke Brother No history of Stroke 1st degree relative No hx of cancer of breast, colon, endometrium or ovary Brother No history of Myocardial infarction 1st degree relative No hx of venous thromboembolism Father No history of Myocardial infarction Mother No history of Myocardial infarction Father No history of Stroke 1st degree relative No hx of coronary heart disease (female <65, male <55) Sister No history of Myocardial infarction Mother No history of Stroke Immunizations Vaccine Date Status Comments No information Payers Payer name Insurance type Covered green party ID Authorization(s) Mir WISE Kamran [facility] CI [id number] Social History Type Description Quantity Date Captured Comments Alcohol Use Details Unknown Caffeine Use Details Unknown Tobacco Use Status Unknown Smoking Status Never smoker Sex Female Vital Signs Date / Height Weight BMI Pulse Blood Temperature Respiratory Body Head BMI Pulse Inhaled Time: Rate Pressure Rate Surface Circumference percentile [place] Area No information Chief Complaint And Reason For Visit No information Reason For Referral Reason For Referral No information Plan Of Treatment Date Type Action Status No information History Of Present Illness Encounter Date Complaint History Of Present Illness No information Functional Status Date Functional Assessment No information Medications Administered Medication Instructions Dosage Effective Dates (start - stop) Status Comments No information Instructions Date Instruction Additional Information No information Assessments Type Assessment Date No information Goals Health Concern Goal Type Priority Status Date No information Medical Equipment Description Device [place] Device Identifier Effective Dates (start - stop ) Status No information Mental Status Date Cognitive Assessment No information Health Concerns Observation Date No information Concern Status Date No information
--- OUTSIDE RECORDS SUMMARY | 2019-04-02 13:55 | XMS REPORT | Continuity of Care Document ---
:1995 Author Organization [facility] Address [address] [place] [address] Phone Care Team Providers Name Role Phone Kalyani Jimenez Unavailable Unavailable Allergies, Adverse Reactions, Alerts Substance Reaction Status No Known Allergies Active Medications Medication Instructions Dosage Effective Dates Status Comments (start - stop) Metrogel Vaginal insert 1 37.5 MG - Active 0.75 % applicatorful by vaginal route every day at bedtime Liletta 19.5 mcg/24 Insert IU - Active hour (4 years) intrauterine device ALBUTEROL INHALER Not Available - Active (unknown strength) Problems Condition Effective Dates (start - Clinical [...] human immunodeficiency virus Acute vaginitis Encounter for ot screening for malignant neoplasm of breast 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 MD RhD positive - Active Procedures Procedure Date No information Results Test Name Date and Time Measure Units Reference Range Abnormal Flag Status Comments No information Advance Directives Directive Yes / No Effective Date File Name No information Encounters Encounter Practice Location Reason(s) Diagnoses Date Provider Providers Description For Visit Copied on Encounter [facility]. [address], [place], [place], [place], [address] [address], [place], [place] tel:[phone] [place], [id number], [place] tel:[phone] [facility] Chlamydial Nov- White Trisha. Referring [facility] [place] infection, [address] Provider: Of [address], [place], [address], [place], [address] immunodeficienc [place]. W [facility], [facility] y virus [HIV] [facility], [place], [place], [place], [id number], [address].Consu [place] lting tel:[phone] Provider: [id number] NURSE [place] [facility]. [facility] Chlamydial Nov- [facility] [place] infection, . [address] Greater unspecified [address], [place], [place], [place], [address] [address], [facility] tel:[phone] [place], [id number], [place] tel:[phone] [facility] Human Lainey Rico. Referring [facility] [place] immunodeficienc [address] Provider: Of [facility] y virus [HIV] [address] [place] [address], [place], [address], [place], [address] nter for [place]. [address], [facility] routine , [place], [place], [address]. [id number], intrauterine [place] contracep tel:[phone] devEncntr [id number] screen for infections w sexl mode of transmissEncoun ter for test, result negativeInflamm atory disease of cervix uteriEncounter for screening for human immunodeficienc y virus [facility] Encntr screen Hemmer Referring [facility] [place] for infections 1-201 [facility] Provider: Of [facility] sexl mode of 9 [address]. [address] [place], transmissEncoun W [facility], [place] [address] for routine [place], [place], [place], , [place] [address]. [address] [place], [place], intrauterine tel:[phone] [facility], [id number], contracep [address] [place], [place] devAcute [address]. tel:[phone] vaginitisIrregu tel:[phone] lar 857142 menstruation, unspecifiedPost coital and contact bleedingDysmeno rrhea, unspecifiedHuma n immunodeficienc y virus [HIV] counselingEncou nter for screening for human immunodeficienc y virus [facility] Acute vaginitis Maicol Referring [facility] [place] [facility]. [address] Provider: Of [facility] 9 [facility], [place], [place], Raphaelidis [address] [address]. , [address] , [facility] tel:[phone] [place], [address] [place], [place], [id number], [address]. [place] tel:[phone] tel:[phone] [facility] Encounter for Yulisa Referring [facility] [place] ot screening Lawanda. [facility] Provider: Of [facility] for malignant 9 W [facility], [facility], neoplasm of [place], [place], Yulisa J, [address] breastEncntr [address], [place]. W [facility], [facility] for pulp grinder exam tel:[phone] , [place], [place], (general) [address] [place], [address]. [id number], (routine) w/o tel:[phone] [place] abn [phone] tel:[phone] findingsNoninfl [id number] ammatory disorder of vagina, unspecifiedDerm atitis, unspecified [facility] Human Lainey Rico. Referring [facility] [place] immunodeficienc [address] Provider: Of [facility] y virus [HIV] [address] St, [place], [facility], [place], [address], [place], [address] nter for [place]. [address], New routine St, [place], [place], [address]. [id number], intrauterine [place] contracep tel:[phone] devNoninflammat [address] ory disorder of vagina, unspecified [facility] Encounter for Nov-0 Lainey Rico. Referring [facility] [place] routine 5-201 [address] Provider: Of Greater checking of [address], [place], [place], [place], [address], [place], [address] contracep [place]. [address], New devCandidiasis St, [place], [place], [address]. [id number], vagina [place] tel:[phone] [facility] Encounter for Sep-2 Valerie Referring [facility] [place] elective 1 Yennifer. [address] Provider: Of Greater termination of [address], Yennifer [place], pregnancyEncoun [place], [place], Valerie R, [address] [place] [address], [place] insertion of tel:[phone], [place], intrauterine [address] [place], [place], [id number], contraceptive [address]. [place] device tel:[phone] tel:[phone] [facility] Encounter for Sep-1 Yulisa Referring [facility] [place] test, Lawanda. 620 Provider: Of Greater result [address], [facility], positiveEncntr [place], Yulisa J, [address] [place] [address], [place]. [address], New of the tel:[phone] St, [place], [place], bld/[place] [address] [place], [address]. [id number], org/immun tel:[phone] [place] mechnsmEncntr [id number] tel:[phone] screen for 079368 infections w sexl mode of transmissLess than 8 weeks [address] of pregnancyEncoun ter for oth general cnsl and advice on contraception [facility] Encounter for Sep-1 Yulisa Referring [facility] [place] test, [address] [place]. 620 Provider: Of Greater result positive [address], [place]anda [place], [place], Yulisa J, [address] [address], [place]. [place] , [place] tel:[phone] [facility], [place], [address] [place], [address]. [id number], tel:[phone] [place] 568885 tel:[phone] [facility] Body mass index Isaias-1 [facility] [place] (BMI) 8 Of Greater 29.0-29.9, 8 [place], adultEncounter [address] for , [place] test, result [place], [place], negativeEncount [id number], er for initial [place] prescription of tel:[phone] contraceptive [phone] pills [facility] Human Lainey Rico. Consulting [facility] [place] immunodeficienc [address] Provider: Of Greater y virus [HIV] [address] [place] [address], NURSE [place], [place], [address], [facility]. [address] nter for [place]. , [facility] test, [place], result negative [id number], [place] tel:[phone] [facility] Acute vaginitis Isaias-2 [facility] [place] 2 Connie. [address] [place], [place], [place], [place], [address] [address], tel:[phone] [place], [id number], [place] tel:[phone] [facility] Encounter for Isaias-0 [facility] [place] initial Of Greater prescription of 7 [place], contraceptive [address] pillsEncounter , [facility] for [place], [place], prescription of [id number], emergency [place] contraception tel:[phone] [facility] Human June- Lainey Rico. Consulting [facility] [place] immunodeficienc [address] Provider: Of Greater y virus [HIV] 7 [facility], NURSE [place], [place], [address], [facility]. [address] nter for [place]. , [place] test, [place], result negative [id number], [place] tel:[phone] [facility] Enctr srvlnc Lainey Rico. [facility] [place] implantable 0-201 [address] Of Greater subdermal [address], [place], [place], [place], [address], [address] counter for oth [place]. St, [place] general cnsl [place], and advice on [id number], contraceptionEn [place] counter for tel:[phone] prescription of [phone] emergency contraception [facility] Irregular [facility] [place] menstruation, 0-201 Of Greater unspecifiedEnct 7 [place], r srvlnc [address], [place] subdermal [place], [place], contraceptiveEn [id number], cntr screen for [place] infections w tel:[phone] sexl mode of [id number] transmiss [facility] Enctr srvlnc Lainey Rico. [facility] [place] implantable 7-201 [address] Of Greater subdermal [address], [place], [place], [place], [address], [address]idiasis of [place]. St, [place] vulva and [place], vagina [id number], [place] tel:[phone] [facility] Enctr srvlnc [facility] [place] implantable 4-201 Of Greater subdermal 6 [place], contraceptiveEn [address], [place], intrauterine [id number], contraceptive [place] deviceEncntr tel:[phone] screen for [phone] infections w sexl mode of transmissEncoun ter for oth general cnsl and advice on contraception [facility] Encounter for [facility] [place] test, Kalyani. [address] Of Greater result [address], [place], negativeEncount [place], [place], [address] [place] [address], [place], [place] general cnsl tel:[phone] [place], [place] [id number], contraceptionIr [place] regular tel:[phone] menstruation, 345386 unspecified [facility] Encntr screen [facility] [place] for dis of the Of Greater bld/bld-form 6 [place], org/immun [address], [place], infections w [id number], sexl mode of [place] transmissEncoun tel:[phone] ter for [phone] surveillance of other contraceptives [facility] Encntr screen Joe Salguero. [facility] [place] for dis of the [address] Of Greater bld/bld-form 5 St, [place], [place], org/[place], [address]. [address] mechnsmEncounte tel:[phone] St, [place] [address] [place], surveillance of [id number], other [place] contraceptives tel:[phone] [facility] Encounter for [facility] Referring [facility] [place] ot general [place]. 620 Provider: Of [facility] and advice [address] [facility], on [place], [place], [address] contraceptionEn [address]. [address] , [place] counter for tel:[phone] [address] , [place], [place] [address] [place], [place], [id number], [place] [address]. [place] other tel:[phone] tel:[phone] contraceptivesE [phone] ncntr screen for infections w sexl mode of transmissEncoun ter for test, result negative [facility] Encounter for Chuy Nieves. [facility] [place] surveillance of [address]. Of Greater injectable [address] [place], contraceptiveVa [place], [place], [address] sc[address] [address], [place] headache, not tel:[phone] [place], elsewhere [id number], classified [place] tel:[phone] [facility] BCM Other, Sep-0 Joe Salguero. Referring [facility] [place] Start [address] Provider: Of [facility] [address], [place], [place], [address]. Joe, [address] tel:[phone] [address], [place] [address] [address], [place], [place], [address]. [id number], tel:[phone] [place] [address] tel:[phone] lting [phone] Provider: NURSE [place] [facility]. [facility] Family Planning Sep- [facility] [place] Counseling 5-201 Connie. [address], [address] [address]. [facility] tel:[phone] [place], [id number], tel:[phone] [facility] Sep- Parete Consulting [facility] [place] 0-201 Connie. [address] Provider: Of [address], NURSE [place] CATHLE[place], [facility]. [address] [address]. [facility] tel:[phone] [place], [id number], [place] tel:[phone] Family History Family Member Diagnosis Age At [...] information Payers Payer name Insurance type Covered alliance party ID Authorization(s) [facility] CI [id number] Social History Type Description Quantity Date Captured [...] Date No information Medical Equipment Description Device [place] Device Identifier Effective Dates (start - stop ) Status No information Mental Status Date Cognitive Assessment No information Health Concerns Observation Date No information Concern Status Date No information
--- OUTSIDE RECORDS SUMMARY | 2019-04-02 13:55 | XMS REPORT | Continuity of Care Document ---
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 [address] [place], [address], [address] [place], [place], [facility] [address]. [place], [place], tel:[phone], [address] [place] tel:[phone] [facility] Chlamydial Nov- Lainey Rico. [facility], [address] Provider: Of [address], [facility] [place], [address], [place], 620 [address] immunodeficienc [place]. W [facility], [facility] y virus [HIV] [facility], [place], [place], [place], [id number], [address].Consu [place] lting tel:[phone] Provider: [id number] NURSE [place] [facility]. [facility] Chlamydial Nov- [facility] [place] infection, . [address] Of [facility] 9 [facility], [place], [place], [place], [address], New tel:[phone] [place], [id number], [place] tel:[phone] [facility] Human Nov- Lainey Rico. [facility] immunodeficienc [address] Provider: Of [facility] y virus [HIV] [address] [place] [address], [place], [address], White, 620 [address] nter for [place]. [address], [facility] routine , [place], [place], [address]. [id number], intrauterine [place] contracep tel:[phone] devEncntr 256790 screen for infections w sexl mode of transmissEncoun ter for test, result negativeInflamm atory disease of cervix uteriEncounter for screening for human immunodeficienc y virus Planned [facility] Encntr screen [place] Referring [facility] [place] for infections [facility] Provider: Of [facility] sexl mode of 9 [address]. 620 [address] [place], transmissEncoun W [facility], [place] [address] for routine [place], [place], [place], , [place] [address]. [address] [place], [place], intrauterine tel:[phone] [facility], [id number], contracep [address] [place], [place] devAcute [address]. tel:+[phone] vaginitisIrregu tel:[phone] lar [phone] menstruation, unspecifiedPost coital and contact bleedingDysmeno rrhea, unspecifiedHuma n immunodeficienc y virus [HIV] counselingEncou nter for screening for human immunodeficienc y virus Planned [facility] Acute vaginitis Maicol Referring [facility] [place] [facility]. [address] W Provider: Of [facility] [address], [place], [place], [place], Raphaelidis [address] [address]. , [address] , New tel:[phone] [facility], [place], [address] [place], [place], [id number], [address]. [place] tel:+ tel:[phone] [facility] Encounter for Yulisa Referring [facility] [place] ot screening Lawanda. [facility] Provider: Of [facility] for malignant 9 W [facility], [facility], neoplasm of [place], [place], Yulisa J, 620 [address] breastEncntr [address], [place]. W [facility], [facility] for youtuber exam tel:[phone] , [place], [place], (general) [address] [place], [address]. [id number], (routine) w/o tel:+[phone] [place] abn 925019 tel:+[phone] findingsNoninfl 014751 ammatory disorder of vagina, unspecifiedDerm atitis, unspecified [facility] Human [place] Trisha. Referring [facility] [place] immunodeficienc [address] Provider: Of [facility] y virus [HIV] 9 St, [place], [facility] [place], [place], [address], [place], 620 [address] nter for [place]. [address], New routine St, [place], [place], [place], [address]. [id number], intrauterine [place] contracep tel:[phone] devNoninflammat 075558 ory disorder of vagina, unspecified [facility] Encounter for Nov-0 Lainey Rico. Referring [facility] [place] routine - [address] Provider: Of Greater checking of [address], [place], [place], [place], [address], White, 620 [address] contracep [place]. [address], New devCandidiasis [address], [place], [place], [place], [place], [address]. [id number], vagina [place] tel:[phone] [facility] Encounter for Sep-2 Valerie Referring [facility] [place] elective 1 Yennifer. 620 W Provider: Of Greater termination of [address], [place], pregnancyEncoun [place], [place], Valerie R, [address] [place] [address], New insertion of tel:[phone], [place], [place], intrauterine [address] [place], [place], [id number], contraceptive [address]. [place] device tel:+[phone] tel:[phone] [facility] Encounter for Sep-1 Yulisa Referring [facility] [place] test, [place]. 620 Provider: Of Greater result [address], [facility], positiveEncntr [place], Yulisa J, [address] [place] [address], [place]. [address], New of the tel:[phone] St, [place], [place], [place], bld/[place] [address] [place], [address]. [id number], org/immun tel:+[phone] [place] mechnsmEncntr 180796 tel:+[phone] screen for 101229 infections w sexl mode of transmissLess than 8 weeks [address] of pregnancyEncoun ter for oth general cnsl and advice on contraception Planned [facility] Encounter for Sep-1 Yulisa Referring [facility] [place] test, 3 [place]. 620 Provider: Of Greater result positive [address], [place], [place], [place], Yulisa J, 620 [address] [address], [place]. [address] , [facility] tel:[phone] [facility], [place], [address] [place], [address]. [id number], tel:+[phone] [place] 033370 tel:[phone] [facility] Body mass index Isaias-1 [facility] [place] (BMI) 8 Of Greater 29.0-29.9, 8 [place], adultEncounter [address], [place] test, result [place], [place], negativeEncount [id number], er for initial [place] prescription of tel:[phone] contraceptive 166991 pills Planned [facility] Human Lainey Rico. Consulting [facility] immunodeficienc [address] Provider: Of [facility] y virus [HIV] 7 [facility], NURSE [place], [facility], [address], PPS[facility]. [address] nter for [place]. , [facility] test, [place], [place], result negative [id number], [place] tel:[phone] [facility] Acute vaginitis Isaias-2 [facility] [place] 2 Connie. [address] Of Greater [address] , [place], [place], [place], [address], tel:[phone] [place], [id number], [place] tel:[phone] [facility] Encounter for [facility]aias-[facility] initial Of Greater prescription of 7 [place], contraceptive [address] pillsEncounter , [facility] for [place], [place], prescription of [id number], emergency [place] contraception tel:[phone] [facility] Human June- Lainey Rico. Consulting [facility] immunodeficienc [address] Provider: Of [facility] y virus [HIV] 7 [facility], [place]SE [place], [place], [address], PPSFL. [address] nter for [place]. , [place], result negative [id number], [place] tel:[phone] [facility] Enctr srvlnc Lainey Rico. [facility] [place] implantable 0-201 [address] Of Greater subdermal 7 St, [place], [place], [place], [address], [address] counter for oth [place]. St, [place] general cnsl [place], [place], and advice on [id number], contraceptionEn [place] counter for tel:[phone] prescription of 087299 emergency contraception [facility] Irregular [facility] [place] menstruation, 0-201 Of Greater unspecifiedEnct 7 [place], r srvlnc [address], New subdermal [place], [place], contraceptiveEn [id number], cntr screen for [place] infections w tel:[phone] sexl mode of 764617 transmiss Planned [facility] Enctr srvlnc Lainey Rico. [facility] [place] implantable 7-201 [address] Of Greater subdermal 6 St, [place], [place], [place], [address], [address] ndidiasis of [place]. St, [place] vulva and [place], [place], vagina [id number], [place] tel:[phone] [facility] Enctr srvlnc [facility] [place] implantable 4-201 Of Greater subdermal 6 [place], contraceptiveEn [address], [place] insertion of [place], [place], intrauterine [id number], contraceptive [place] deviceEncntr tel:[phone] screen for 017047 infections w sexl mode of transmissEncoun ter for oth general cnsl and advice on contraception [facility] Encounter for Borglum [facility] [place] test, Kalyani. 620 Of Greater result [address], [place], negativeEncount [place], [place], [address] er for oth [address], [place]. St, New general cnsl tel:[phone] [place], [place], [place] [id number], contraceptionIr [place] regular tel:[phone] menstruation, 939147 unspecified [facility] Encntr screen [facility] [place] for dis of the 5 Of Greater bld/bld-form 6 [place], org/immun [address], [place] screen [place], infections w [id number], sexl mode of [place] transmissEncoun tel:[phone] ter for 034470 surveillance of other contraceptives Planned [facility] Encntr screen Joe Salguero. [facility] [place] for dis of the [address] Of Greater bld/bld-form 5 St, [place], [place], org/[place], [address]. [address] mechnsmEncounte tel:[phone] St, [place] [address] [place], [place], surveillance of [id number], other [place] contraceptives tel:[phone] [facility] Encounter for [facility] Referring [facility] [place] ot general [place]. [facility] Provider: Of [facility] and advice [address] [facility], on [place], [place], [address] contraceptionEn [address], [place] counter for tel:[phone], [place], initial [address] [place], [place], [id number], [place] [address]. [place] other tel:+[phone] tel:[phone] contraceptivesE [phone] 312571 ncntr screen for infections w sexl mode of transmissEncoun ter for test, result negative [facility] Encounter for Chuy Nieves. [facility] [place] surveillance of [address]. Of Greater injectable [address] [place], contraceptiveVa [place], [place], [address] scular [address], New headache, not tel:[phone] [place], [place], elsewhere [id number], classified [place] tel:[phone] [facility] BCM Other, Sep-0 Joe Salguero. Referring [facility] [place] Start [address] Provider: Of [facility] [address], [place], [place], [address]. Joe, [address] tel:[phone] [address], [place] [address] St, [place], [place], [address]. [id number], tel:[phone] [place] 750[address]Fdgzl tel:[phone] lting [phone] Provider: NURSE [place] [facility]. [facility] Family Planning Sep- Parete [facility] [place] Counseling 5-201 Connie. [address] Of [address], [address] [address]. [facility] tel:[phone] [place], [id number], tel:[phone] [facility] Sep- Parete Consulting [facility] [place] 0-201 Connie. 620 W Provider: [address], NURSE [place]ATHLE[place], PPSFL. [address] [address]. [facility] tel:[phone] [place], [id number], [place] tel:[phone] Family History Family Member Diagnosis Age At [...] information Payers Payer name Insurance type Covered republican ID Authorization(s) Mir WISE [facility] CI [id number] Social History Type Description Quantity Date Captured Comments Sex Female Vital Signs Date / Height [...] Date No information Medical Equipment Description Device Kasbeer Device Identifier Effective Dates (start - stop ) Status No information Mental Status Date Cognitive Assessment No information Health Concerns Observation Date No information Concern Status Date No information
--- OUTSIDE RECORDS SUMMARY | 2019-04-02 13:55 | XMS REPORT | Continuity of Care Document ---
:1995 Author Organization [facility] Address [address] [place] [address] Phone Care Team Providers Name Role Phone Trisha Retana NP Unavailable Unavailable Allergies, Adverse Reactions, Alerts Substance [...] for malignant neoplasm of breast Encntr for iridologist exam (general) (routine) w/o 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 Noninflammatory [...] For Visit Copied on Encounter [facility] Lainey Rico. [facility] [place] [address] [place] Of [facility] 0 , [place], [place], [address], [address], [place], [place], [id number], [place] tel:[phone] [facility] Chlamydial Lainey Rico. Referring [facility] [place] infection, [address] [place] Provider: Of [facility] 9 [facility] [place], [address], White, 620 [address] immunodeficienc [place]. [address], New y virus [HIV] St, [place], [place], [place], [place], [id number], [address].Consu [place] lting tel:[phone] Provider: [id number] NURSE [place] [facility]. [facility] Chlamydial P[facility]te [facility] [place] infection, . 620 W Of [facility] unspecified [address], [place], [place], [place], [address] [address], [facility] tel:[phone] [place], [id number], [place] tel:[phone] [facility] Human Lainey Rico. Referring [facility] [place] immunodeficienc [address] [place] Provider: Of [facility] y virus [HIV] 9 [facility], [place], [address], White, 620 [address] nter for [place]. W [address], [place] routine St, [place], [place], [place], [place], [address]. [id number], intrauterine [place] contracep tel:[phone] devEncntr 401209 screen for infections w sexl mode of transmissEncoun ter for test, result negativeInflamm atory disease of cervix uteriEncounter for screening for human immunodeficienc y virus [facility] Encntr screen [place] Referring [facility] for infections [place] Provider: Of Greater w sexl mode of 9 [address]. 620 [place] [place], transmissEncoun W [facility], [place] [address] for routine [place], [place], [place], , [place] [address]. [address] [place], [place], intrauterine tel:[phone] [address], [id number], contracep [address] [place], [place], [place] devAcute [address]. tel:+[phone] vaginitisIrregu tel:[phone] lar 098841 menstruation, unspecifiedPost coital and contact bleedingDysmeno rrhea, unspecifiedHuma n immunodeficienc y virus [HIV] counselingEncou nter for screening for human immunodeficienc y virus [facility] Acute vaginitis Maicol Referring [facility] [place] [facility]. [address] Provider: Of [facility] [address], [place], [place], [place], [place]haelidis [address] [address]. , [address] , New tel:[phone] [address], [place], [address] [place], [place], [id number], [address]. [place] tel:+6072 tel:[phone] [facility] Encounter for Yulisa Referring [facility] [place] ot screening [place]. [facility] Provider: Of [facility] for malignant [address] [facility], [facility], neoplasm of [place], [place], Yulisa J, 620 [address] breastEncntr [address], [place]. [address], New for iridologist exam tel:[phone] St, [place], [place], (general) [address] [place], [address]. [id number], (routine) w/o tel:+[phone] [place] abn 409393 tel:+[phone] findingsNoninfl 223407 ammatory disorder of vagina, unspecifiedDerm atitis, unspecified [facility] Human Feb- Lainey Rico. Referring [facility] [place] immunodeficienc [address] [place] Provider: Of [facility] y virus [HIV] 9 St, [place], [facility] [place], [place], [address], White, 620 [address] nter for [place]. [address], New routine St, [place], [place], [place], [place], [address]. [id number], intrauterine [place] contracep tel:[phone] devNoninflammat 930239 ory disorder of vagina, unspecified [facility] Encounter for Nov-0 Lainey Rico. Referring [facility] [place] routine [address] [place] Provider: Of Greater checking of [address], [place], Tr[place], [place], [address], White, 620 [address] contracep [place]. W [address], New devCandidiasis [address], [place], [place], [place], [place], [address]. [id number], vagina [place] tel:[phone] [facility] Encounter for Sep-2 Valerie Referring [facility] [place] elective Yennifer. [address] W Provider: Of Greater termination of [address], [place], pregnancyEncoun [place], [place], Valerie R, [address] [place] [address], New insertion of tel:[phone] [address], [place], [place], intrauterine [address] [place], [place], [id number], contraceptive [address]. [place] device tel:+[phone] tel:[phone] [facility] Encounter for Sep-1 Yulisa Referring [facility] [place] test, [place]. 620 Provider: Of Greater result [address], [facility], positiveEncntr [place], Yulisa Garcia, [address] [place] [address], [place]. W [address], New of the tel:[phone] St, [place], [place], [place], bld/[place] [address] [place], [address]. [id number], org/immun tel:[phone] [place] mechnsmEncntr 321708 tel:[phone] screen for 973146 infections w sexl mode of transmissLess than 8 [address] pregnancyEncoun ter for oth general cnsl and advice on contraception [facility] Encounter for Sep-1 Yulisa Referring [facility] [place] test, 3 [place]. 620 Provider: Of Greater result positive [address], [place], [place], [place], Yulisa J, 620 [address] [address], [place]. [address], New tel:[phone] , [place], [place], [address] [place], [address]. [id number], tel:[phone] [place] 799128 tel:[phone] [facility] Body mass index Isaias-1 [facility] [place] (BMI) 8-201 Of Greater 29.0-29.9, 8 [place], adultEncounter [address], [facility] test, result [place], [place], negativeEncount [id number], er for initial [place] prescription of tel:[phone] contraceptive 617186 pills Planned [facility] Human Lainey Rico. Consulting [facility] immunodeficienc [address] [place] Provider: Of Greater y virus [HIV] [address] [place] [address], NURSE [place], [place], [address], PPSFL. [address] nter for [place]. , [facility] test, [place], [place], result negative [id number], [place] tel:[phone] [facility] Acute vaginitis Isaias-2 P[facility]te [facility] [place] 2- Connie. [address] Of Greater [address] , [place], [place], [place], [address] [address]. , [facility] tel:[phone] [place], [id number], [place] tel:[phone] [facility] initial Of Greater prescription of 7 [place], contraceptive [address] pillsEncounter , [facility] for [place], [place], prescription of [id number], emergency [place] contraception tel:[phone] Planned [facility] Human June- Lainey Rico. Consulting [facility] immunodeficienc [address] [place] Provider: Of Greater y virus [HIV] 7 [facility], NURSE [place], [facility], [address], PPSFL. [address] nter for US. , [facility] test, [place], [place], result negative [id number], [place] tel:[phone] Planned [facility] Enctr srvlnc Lainey Rico. [facility] [place] implantable 0-201 [address] [place] Of Greater subdermal 7 St, [place], [place], [place], [address], [address] counter for oth [place]. St, New general cnsl [place], [place], and advice on [id number], contraceptionEn [place] counter for tel:[phone] prescription of 195871 emergency contraception Planned [facility] Irregular May- [facility] [place] menstruation, 0- Of Greater unspecifiedEnct 7 [place], r srvlnc [address], [place] subdermal [place], [place], contraceptiveEn [id number], cntr screen for [place] infections w tel:[phone] sexl mode of 639965 transmiss Planned [facility] Enctr srvlnc Jan- White Trisha. [facility] [place] implantable 7 [address] [place] Of Greater subdermal 6 [address], [place], [place], [place], [address], [address] ndidiasis of [place]. St, [place] vulva and [place], [place], vagina [id number], [place] tel:[phone] Planned [facility] Enctr srvlnc [facility] [place] implantable 4 Of Greater subdermal 6 [place], contraceptiveEn [address], [place] insertion of [place], [place], intrauterine [id number], contraceptive [place] deviceEncntr tel:[phone] screen for 637601 infections w sexl mode of transmissEncoun ter for oth general cnsl and advice on contraception Planned [facility] Encounter for Borglum [facility] [place] test, Kalyani. 620 Of Greater result [address], [place], negativeEncount [place], [place], [address] er for oth [address], [place]. St, New general cnsl tel:[phone] [place], [place] [id number], contraceptionIr [place] regular tel:[phone] menstruation, 746687 unspecified Planned [facility] Encntr screen [facility] [place] for dis of the Of Greater bld/bld-form 6 [place], org/immun [address], [place] screen for [place], [place], infections w [id number], sexl mode of [place] transmissEncoun tel:[phone] ter for 698122 surveillance of other contraceptives Planned [facility] Encntr screen Joe Salguero. [facility] [place] for dis of the [address] [place] Of Greater bld/bld-form 5 St, [place], [place], [place], [address]. [address] mechnsmEncounte tel:[phone] St, [place] [address] [place], [place], surveillance of [id number], other [place] contraceptives tel:[phone] [facility] Encounter for Ott Referring [facility] [place] ot general 3 [place]. 620 Provider: Of [facility] and advice [address] [place] [facility], on [place], [place], [place], [address] contraceptionEn [address], New counter for tel:[phone] [address], [place], [place], initial [address] [place], [place], [id number], [place] [address]. [place] other tel:+6072 tel:[phone] contraceptivesE 551707 255081 ncntr screen for infections w sexl mode of transmissEncoun ter for test, result negative Planned [facility] Encounter for Chuyblaze Nieves. [facility] [place] surveillance of [address]. Of Greater injectable [address] [place], contraceptiveVa [place], [place], [address] sc[address], New headache, not tel:[phone] [place], [place], elsewhere [id number], classified [place] tel:[phone] [facility] BCM Other, Sep-0 Joe Salguero. [facility] Start [address] [place] Provider: Of [facility] [address], [place], [place], [address]. Joe, [address] tel:+[phone] [address], [place] [address] [address], [place], [place], [address]. [id number], tel:[phone] [place] 076819Elett tel:[phone] lting [phone] Provider: NURSE [place] [facility]. [facility] Family Planning Parete [facility] [place] Counseling 5-201 Connie. [address], [address] [address]. [facility] tel:[phone] [place], [id number], [place] tel:[phone] Planned [facility] Parete Consulting [facility] [place] 0-201 Connie. 620 W Provider: Of [address], NURSE [place] CATHLE[place], [place], PPSFL. [address] [address]. [facility] tel:[phone] [place], [id number], [place] tel:[phone] Family History Family Member Diagnosis Age At [...] name Insurance type Covered republican ID Authorization(s) [facility] CI [id number] Social History Type Description Quantity Date Captured [...] Date No information Medical Equipment Description Device Evans Device Identifier Effective Dates (start - stop ) Status No information Mental Status Date Cognitive Assessment No information Health Concerns Observation Date No information Concern Status Date No information
[2019-04-02 14:54] VITALS: BP 112/70
[2019-04-02] MEDS ORDERED: Acetaminophen TAB* 325 MG PO ONE (15:05)
--- NOTE | 2019-04-02 15:06 | UC ---
FLU HPI - HPI Summary HPI Summary: Patient presents to urgent care reporting 48 hours of body congestion, sinus congestion runny nose. Patient states she's been taking Tylenol for fevers last dose of DayQuil was at 10:00 this morning. Patient reports nausea but no vomiting. No diarrhea. Patient did not the flu vaccine this year. 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 Patient does not smoke. Patient's not immunocompromised. Patient's medications as noted in the EMR by triage was reviewed this visit. Pt does have an inhaler - has used intermittently with relief - does not need refill - History of Current Complaint Chief Complaint: UCRespiratory Stated Complaint: BODYACHES CHILLS COUGH RUNNY NOSE Time Seen by Provider: 04/02/19 14:51 Hx Obtained From: Patient, Family/Psychiatric Aide Hx Last Menstrual Period: 03/21/19 ?: No Onset/Duration: Gradual Onset Severity Currently: Moderate Severity Initially: Moderate Pain Intensity: 9 Pain Scale Used: 0-10 Numeric - Allergy/Home Medications Allergies/Adverse Reactions: Allergies Allergy/AdvReac Type Severity Reaction Status Date / Time No Known Allergies Allergy Verified 04/02/19 14:54 Home Medications: Home Medications D-Methorphan/PE/Acetaminophen [Cold Multi-Symptom Caplet] 1 tab PO Q12HR [History Confirmed 04/02/19] PMH/Surg Hx/FS Hx/Imm Hx Previously Healthy: Yes Other History Of: Negative For: Anticoagulant Therapy - Surgical History Surgical History: Yes Surgery Procedure, Year, and Place: GANGLION CYST REMOVED RIGHT WRIST -06/2015, 05/2016 - Family History Known Family History: Positive: Hypertension, Other - mood d/o, bipolar d/o, anxiety d/o, depression, Non-Contributory Negative: Cardiac Disease, Diabetes - Social History Occupation: Employed Full-time Lives: With Family Alcohol Use: None Substance Use Type: None Smoking Status (MU): Never Smoked Tobacco Type: Cigarettes Household Exposure Type: Cigarettes - Immunization History Most Recent Influenza Vaccination: unsure Most Recent Pneumonia Vaccination: unsure Vaccination Up to Date: Yes Review of Systems All Other Systems Reviewed And Are Negative: Yes Constitutional: Positive: Negative, Fatigue ENT: Positive: Sore Throat, Nasal Discharge, Sinus Congestion, Sinus Pain/ Tenderness Respiratory: Positive: Cough. Negative: Shortness Of Breath Cardiovascular: Positive: Negative Gastrointestinal: Positive: Nausea. Negative: Abdominal Pain, Vomiting Physical Exam - Summary Physical Exam Summary: Vital Signs Reviewed: Yes A+Ox3, no distress Eyes: Conjunctiva Clear, SHAYE. EOM intact and full ENT: Hearing grossly normal TM x 2 clear, turbinates inflammed and boggy, + PND , mmoist, uvula midline, no exudate, no erythema Neck: Positive: Supple Respiratory: Positive: No respiratory distress, No accessory muscle use + CTA throughout no w/r, mild intermittent cough Cardiovascular: RRR nl s1, s2 no m/r CBT <2 sec abd soft + BS nt/nd no guarding, no distension Musculoskeletal Exam: GOEL x 4 without difficulty Strength Intact, ROM Intact Neurological: Positive: Alert, + sensation throughout Psychological: Positive: Normal Response To examiner Skin: Positive: no rash, no ecchymosis Triage Information Reviewed: Yes Vital Signs: Initial Vital Signs Temp 102.6 F 04/02/19 14:49 Pulse 127 04/02/19 14:49 Resp 16 04/02/19 14:49 BP 112/70 04/02/19 14:49 Pulse Ox 98 04/02/19 14:49 Flu Course/Dx - Course Course Of Treatment: Patient presents to urgent care with 48 hours of progressive head congestion runny nose and nonproductive cough. Patient has been taking DayQuil and NyQuil for fevers. Last dose o'clock this morning. Patient denies productive cough. No other symptoms. On exam patient does have a fever and elevated heart rate. Patient appears tired but not toxic. Patient does have congestion in her nose postnasal drip and intermittent cough. Lungs are clear. Will start patient on Tamiflu as her and plans was part positive. We'll palpation out of work until she feels it for 24 hours. Encourage secretion precaution. Humidified air. Return precautions. Patient comfortable in agreement with plan. - Differential Dx/Diagnosis Provider Diagnosis: Influenza Discharge ED - Sign-Out/Discharge Documenting (check all that apply): Patient Departure All imaging exams completed and their final reports reviewed: No Studies - Discharge Plan Condition: Stable Disposition: HOME Prescriptions: Oseltamivir Phosphate [Tamiflu] 75 mg PO BID #10 capsule Patient Education Materials: Influenza (ED) Forms: *Work Release Referrals: Too Frank RESTAURANT AREA DIRECTOR [Primary Care Provider] - Additional Instructions: - Stay well hydrated. Drink plenty of non-alcoholic, non-caffinated beverages. - Take Tamiflu as prescribed - Alternate ibuprofen (Advil, Motrin) 600mg and Tylenol every 3 hours for pain or fever. Take with food. Do NOT take for more than 4-5 days. - These infections are spread by secretions - do NOT share eating or drinking utensils - clean items you share with other people such as cell phones, computer mouse, TV remote, computer tablets,etc. Once you start to feel better, change your toothbrush and your pillowcase. - get plenty of restful sleep - humidify the air in the room where you sleep - boil water, run a hot steam shower, vaporizer, cups of water by heat register - okay to take over the counter decongestant and cough medication - contact your doctor or return with questions or concerns - Billing Disposition and Condition Condition: STABLE Disposition: Home
[2019-04-02 15:13] LABS: Influenza A Molecular POSITIVE (Negative)
== END 2019-04-02 15:35 | disposition home or self-care (01) ==
LOC: UCEAST 13:46
DX: J11.1 Influenza due to unidentified influenza virus with other respiratory manifestations (principal)
CPT/HCPCS: 99212; A9270-GY; G0463

== ENCOUNTER 2019-04-12 14:51 | Emergency (ER) | payer OTHER ==
[2019-04-12 15:18] LABS: Rapid Strep Molecular Negative (Negative)
[2019-04-12 15:23] LABS: Influenza A Molecular POSITIVE (Negative)
--- NOTE | 2019-04-12 15:42 | ED ---
Influenza-Like Illness - HPI Summary HPI Summary: Patient is a 24 y/o F presenting to [facility] with complaints of influenza-like illness. She was diagnosed with influenza A last week. She was prescribed Tamiflu and took all doses except for the last two. She states that she was feeling improved for five days. Yesterday, patient had onset of sore throat, nasal congestion, SIEGEL, body aches, nausea, cough, pain with swallowing. She denies SOB and chest congestion. She took some Dayquil and ibuprofen for Sx. PMHx of asthma noted, patient has inhaler but did not use it. Home medications and allergies are reviewed. Home Medications Medication Instructions Recorded Confirmed Type Albuterol HFA INHALER* 2 puff INH QID PRN 08/15/17 04/02/19 History D-Methorphan/PE/Acetaminophen 1 tab PO Q12HR 04/02/19 04/02/19 History [Cold Multi-Symptom Caplet] Oseltamivir Phosphate [Tamiflu] 75 mg PO BID #10 capsule 04/02/19 Rx - History of Current Complaint Chief Complaint: EDFluSymptoms Time Seen by Provider: 04/12/19 15:27 Hx Obtained From: Patient Onset/Duration: Lasting Hours, Still Present Severity: Moderate Associated Signs & Symptoms: Myalgia, Cough, Sore Throat, Nasal Congestion - Allergy/Home Medications Allergies/Adverse Reactions: Allergies Allergy/AdvReac Type Severity Reaction Status Date / Time No Known Allergies Allergy Verified 04/12/19 14:55 Home Medications: Home Medications Albuterol HFA INHALER* [Ventolin HFA Inhaler*] 2 puff INH QID PRN #0 08/15/17 [ History Confirmed 04/12/19] D-Methorphan/PE/Acetaminophen [Cold Multi-Symptom Caplet] 1 tab PO Q12HR [History Confirmed 04/12/19] Oseltamivir Phosphate [Tamiflu] 75 mg PO BID #10 capsule 04/02/19 [Rx Confirmed 04/12/19] Benzonatate CAP* [Tessalon 100 MG CAP*] 100 mg PO TID PRN 10 Days #30 cap [Rx] Ibuprofen TAB* [Motrin TAB* 800 MG] 800 mg PO TID PRN 10 Days #30 tab 04/12/19 [ Rx] PMH/Surg Hx/FS Hx/Imm Hx Endocrine/Hematology History: Reports: Hx Anemia - during Denies: Hx Anticoagulant Therapy, Hx Blood Disorders, Hx Diabetes, Hx Thyroid Disease, Hx Unexplained Bleeding Cardiovascular History: Denies: Hx Hypertension, Other Cardiovascular Problems/Disorders Respiratory History: Reports: Hx Asthma - rescue medication Denies: Hx Chronic Obstructive Pulmonary Disease (COPD), Other Respiratory Problems/Disorders GI History: Denies: Hx Gastroesophageal Reflux Disease, Hx Hiatal Hernia, Hx Ulcer, Other GI Disorders History: Denies: Hx Renal Disease, Other Problems/Disorders - Vaginal delivery of infant 06/22/17 Musculoskeletal History: Reports: Other Musculoskeletal History - RIGHT ANKLE FRACTURE; Rt wrist ganglion cyst removed x2 by Shukla Sensory History: Denies: Hx Contacts or Glasses - has glasses, doesn't wear them, Hx Hearing Aid Opthamlomology History: Denies: Hx Contacts or Glasses - has glasses, doesn't wear them Neurological History: Reports: Hx Migraine Denies: Other Neuro Impairments/Disorders Psychiatric History: Reports: Hx Anxiety - no medication, Hx of Violent Episodes Against Others Denies: Hx Eating Disorder, Hx Substance Abuse - Surgical History Surgery Procedure, Year, and Place: GANGLION CYST REMOVED RIGHT WRIST -06/2015, 05/2016 Hx Anesthesia Reactions: No Infectious Disease History: No Infectious Disease History: Denies: Hx Clostridium Difficile, Hx Hepatitis, Hx Human Immunodeficiency Virus (HIV), Hx of Known/Suspected MRSA, Hx Shingles, Hx Tuberculosis, Hx Known/ Suspected VRE, Hx Known/Suspected VRSA, History Other Infectious Disease, Traveled Outside the [place] in Last 30 Days - Family History Known Family History: Positive: Hypertension, Other - mood d/o, bipolar d/o, anxiety d/o, depression Negative: Cardiac Disease, Diabetes - Social History Alcohol Use: None Hx Substance Use: No - tried marijuana once in past Substance Use Type: Reports: None Hx Tobacco Use: Yes Smoking Status (MU): Never Smoked Tobacco Type: Cigarettes Review of Systems Positive: Sore Throat, Nasal Discharge, Other - pain with swallowing Respiratory: Other - negative - chest congestion Positive: Cough. Negative: Shortness Of Breath Positive: Nausea Positive: Myalgia - body aches Positive: Headache All Other Systems Reviewed And Are Negative: Yes Physical Exam - Summary Physical Exam Summary: Constitutional: Well-developed, Well-nourished, Alert. (-) Distressed Skin: Warm, Dry HENT: Normocephalic; Atraumatic; Tonsilar erythema and swelling. Eyes: Conjunctiva normal Neck: Musculoskeletal ROM normal neck. (-) JVD, (-) Stridor, (-) Nuchal rigidity Cardio: Tachycardic, Heart sounds normal; Intact distal pulses; Radial pulses are 2+ and symmetric. (-) Murmur Pulmonary/Chest wall: Effort normal. (-) Respiratory distress, (-) Wheezes, (-) Rales Abd: Soft, (-) tenderness, (-) Distension, (-) Guarding, (-) Rebound Musculoskeletal: (-) Edema Lymph: (+) Cervical lymphadenopathy Neuro: Alert, Oriented x3 Psych: Mood and affect Normal Triage Information Reviewed: Yes Vital Signs On Initial Exam: Initial Vitals Temp Pulse Resp BP Pulse Ox 97.9 F 107 20 123/95 97 04/12/19 14:52 04/12/19 14:52 04/12/19 14:52 04/12/19 14:52 04/12/19 14:52 Vital Signs Reviewed: Yes Procedures - Sedation Patient Received Moderate/Deep Sedation with Procedure: No Diagnostics - Vital Signs Vital Signs Temp Pulse Resp BP Pulse Ox 04/12/19 14:52 97.9 F 107 20 123/95 97 - Laboratory Lab Results: Lab Results 04/12/19 04/12/19 Range/Units 14:55 14:55 Influenza A (Rapid) Positive H (Negative) Influenza B (Rapid) Not Reportable Group A Strep Rapid Negative (Negative) Lab Statement: Any lab studies that have been ordered have been reviewed, and results considered in the medical decision making process. - Radiology CXR Radiology Interpretation Completed By: Radiologist Summary of Radiographic Findings: IMPRESSION: NO EVIDENCE FOR ACTIVE CARDIOPULMONARY DISEASE. THIS REPORT WAS REVIEWED BY ED PHYSICIAN. Re-Evaluation - Re-Evaluation First Eval Re-Evaluation Time: 16:00 Comment: Patient continued to be tachycardic on discharge vitals, patient to receive fluids, toradol and CXR. Flu Symptom Course/Dx - Course Course Of Treatment: 24 y/o F w recent flu A p/w sore throat, cough. - lungs clear, given tachycardia and recent flu diagnosis will check a chest x-ray. Given IV fluids and Toradol. - x-ray without evidence of pneumonia, tachycardia resolved with fluids. Encourage by mouth intake. - Diagnoses Provider Diagnoses: Influenza A, Tachycardia, URI, acute Discharge ED - Sign-Out/Discharge Documenting (check all that apply): Patient Departure - discharge - Discharge Plan Condition: Stable Disposition: HOME Prescriptions: Benzonatate CAP* [Tessalon 100 MG CAP*] 100 mg PO TID PRN 10 Days #30 cap PRN Reason: Cough Ibuprofen TAB* [Motrin TAB* 800 MG] 800 mg PO TID PRN 10 Days #30 tab PRN Reason: Pain - Moderate Patient Education Materials: Upper Respiratory Infection (ED) Referrals: Too Frank DIALYSIS CHIEF EQUIPMENT TECHNICIAN [Primary Care Provider] - Additional Instructions: You were seen in the emergency department for upper respiratory infection. Please drink lots of fluids, take Motrin, for pain. You can take Tessalon Perles for cough. Please follow up with your primary care doctor in next 2-3 days and return to emergency department for worsening cough, shortness of breath, fevers greater than 5 days, chest pain, worsening or concerning symptoms. It was a pleasure taking care of you today. - Billing Disposition and Condition Condition: STABLE Disposition: Home - Attestation Statements Document Initiated by Dmitry: Yes Documenting Scribe: ALBINA ARZOLA Provider For Whom Dmitry is Documenting (Include Credential): LAURENCE NGO MD Scribe Attestation: ALBINA Pepe, scribed for LAURENCE NGO MD on 04/12/19 at 1728. Scribe Documentation Reviewed: Yes Provider Attestation: The documentation as recorded by the ALBINA mckenna accurately reflects the service I personally performed and the decisions made by LAURENCE tobar MD Status of Scribe Document: Viewed
[2019-04-12] MEDS ORDERED: Ketorolac INJ* 30 MG/ML 1 ML VIAL IV ONE (16:00)
[2019-04-12] MEDS ORDERED: NS 0.9% 1000 ML** 1,000 ML IV ONE (16:00)
[2019-04-12 17:47] VITALS: BP 125/80
== END 2019-04-12 17:47 | disposition home or self-care (01) ==
LOC: ED 14:51
DX: J09.X2 Influenza due to identified novel influenza A virus with other respiratory manifestations (principal); R00.0 Tachycardia, unspecified; J45.909 Unspecified asthma, uncomplicated; F41.9 Anxiety disorder, unspecified; Z87.891 Personal history of nicotine dependence
CPT/HCPCS: 71046; 87651; 96361; 96374; 99282; J1885

== ENCOUNTER 2019-05-02 17:38 | Emergency (ER) | payer OTHER ==
--- NOTE | 2019-05-02 18:15 | ED ---
Throat Pain/Nasal Congestion - HPI Summary HPI Summary: 24 year old female presents with nasal congestion for the past 3 days. She admits to postnasal drip stating with the cough. She has a cough that is sometimes productive. She denies chest pain or shortness of breath. She denies any fevers. No chills. No recent travel. She has not been able around anyone that has been sick. She denies any sinus pressure. No headache. She has history asthma. - History of Current Complaint Chief Complaint: EDGeneral Time Seen by Provider: 05/02/19 17:44 - Allergies/Home Medications Allergies/Adverse Reactions: Allergies Allergy/AdvReac Type Severity Reaction Status Date / Time No Known Allergies Allergy Verified 05/02/19 17:42 Home Medications: Home Medications Albuterol HFA INHALER* [Ventolin HFA Inhaler*] 2 puff INH QID PRN #0 08/15/17 [ History Confirmed 04/12/19] D-Methorphan/PE/Acetaminophen [Cold Multi-Symptom Caplet] 1 tab PO Q12HR [History Confirmed 04/12/19] Oseltamivir Phosphate [Tamiflu] 75 mg PO BID #10 capsule 04/02/19 [Rx Confirmed 04/12/19] Benzonatate CAP* [Tessalon 100 MG CAP*] 100 mg PO TID PRN 10 Days #30 cap [Rx] Ibuprofen TAB* [Motrin TAB* 800 MG] 800 mg PO TID PRN 10 Days #30 tab 04/12/19 [ Rx] Amoxicillin/Clavulanate TAB* [Augmentin TAB 875*] 875 mg PO BID #20 tab [Rx] Fluticasone NASAL SPRAY 50MCG* [Flonase NASAL SPRAY 50MCG*] 2 spray BOTH NARES DAILY #1 btl 05/02/19 [Rx] PMH/Surg Hx/FS Hx/Imm Hx Endocrine/Hematology History: Reports: Hx Anemia - during Denies: Hx Anticoagulant Therapy, Hx Blood Disorders, Hx Diabetes, Hx Thyroid Disease, Hx Unexplained Bleeding Cardiovascular History: Denies: Hx Hypertension, Other Cardiovascular Problems/Disorders Respiratory History: Reports: Hx Asthma - rescue medication Denies: Hx Chronic Obstructive Pulmonary Disease (COPD), Other Respiratory Problems/Disorders GI History: Denies: Hx Gastroesophageal Reflux Disease, Hx Hiatal Hernia, Hx Ulcer, Other GI Disorders History: Denies: Hx Renal Disease, Other Problems/Disorders - Vaginal delivery of infant 06/22/17 Musculoskeletal History: Reports: Other Musculoskeletal History - RIGHT ANKLE FRACTURE; Rt wrist ganglion cyst removed x2 by Shukla Sensory History: Denies: Hx Contacts or Glasses - has glasses, doesn't wear them, Hx Hearing Aid Opthamlomology History: Denies: Hx Contacts or Glasses - has glasses, doesn't wear them Neurological History: Reports: Hx Migraine Denies: Other Neuro Impairments/Disorders Psychiatric History: Reports: Hx Anxiety - no medication, Hx of Violent Episodes Against Others Denies: Hx Eating Disorder, Hx Substance Abuse - Surgical History Surgery Procedure, Year, and Place: GANGLION CYST REMOVED RIGHT WRIST -06/2015, 05/2016 Hx Anesthesia Reactions: No Infectious Disease History: No Infectious Disease History: Denies: Hx Clostridium Difficile, Hx Hepatitis, Hx Human Immunodeficiency Virus (HIV), Hx of Known/Suspected MRSA, Hx Shingles, Hx Tuberculosis, Hx Known/ Suspected VRE, Hx Known/Suspected VRSA, History Other Infectious Disease, Traveled Outside the [place] in Last 30 Days - Family History Known Family History: Positive: Hypertension, Other - mood d/o, bipolar d/o, anxiety d/o, depression, Non-Contributory Negative: Cardiac Disease, Diabetes - Social History Alcohol Use: None Hx Substance Use: No - tried marijuana once in past Substance Use Type: Reports: None Hx Tobacco Use: Yes Smoking Status (MU): Never Smoked Tobacco Type: Cigarettes Review of Systems Negative: Fever Positive: Nasal Discharge. Negative: Sore Throat Negative: Chest Pain Positive: Cough. Negative: Shortness Of Breath All Other Systems Reviewed And Are Negative: Yes Physical Exam Triage Information Reviewed: Yes Vital Signs On Initial Exam: Initial Vitals Temp Pulse Resp BP Pulse Ox 98.9 F 95 16 141/97 99 05/02/19 17:39 05/02/19 17:39 05/02/19 17:39 05/02/19 17:39 05/02/19 17:39 Vital Signs Reviewed: Yes Appearance: Positive: Well-Appearing Skin: Positive: Warm, Dry Head/Face: Positive: Normal Head/Face Inspection Eyes: Positive: Normal, EOMI, SHAYE, Conjunctiva Clear ENT: Positive: Normal ENT inspection, Pharynx normal, TMs normal Respiratory/Lung Sounds: Positive: Clear to Auscultation, Breath Sounds Present Cardiovascular: Positive: Normal, RRR Abdomen Description: Positive: Nontender, Soft Bowel Sounds: Positive: Present Musculoskeletal: Positive: Normal Neurological: Positive: Normal Psychiatric: Positive: Normal Procedures - Sedation Patient Received Moderate/Deep Sedation with Procedure: No Diagnostics - Vital Signs Vital Signs Temp Pulse Resp BP Pulse Ox 05/02/19 17:39 98.9 F 95 16 141/97 99 - Laboratory Lab Statement: Any lab studies that have been ordered have been reviewed, and results considered in the medical decision making process. EENT Course/Dx - Course Course Of Treatment: 24 year old female presents with nasal congestion for the past 3 days. She admits to postnasal drip stating with the cough. She has a cough that is sometimes productive. She denies chest pain or shortness of breath. She denies any fevers. No chills. No recent travel. She has not been able around anyone that has been sick. She denies any sinus pressure. No headache. She has history asthma. On exam sinus congestion noted. No sinus tenderness. Pharynx normal. lungs CTA. discussed likely viral this point. Will treat with Flonase. Told if symptoms continue after 3 days and sinus congestion gets worse to start antibiotic. Patient understands and agrees the plan. - Differential Diagnoses Differential Diagnoses: Sinusitis, Tonsilitis, URI/Bronchitis - Diagnoses Provider Diagnoses: Rhinosinusitis Discharge ED - Sign-Out/Discharge Documenting (check all that apply): Patient Departure - Discharge Plan Condition: Good Disposition: HOME Prescriptions: Amoxicillin/Clavulanate TAB* [Augmentin TAB 875*] 875 mg PO BID #20 tab Fluticasone NASAL SPRAY 50MCG* [Flonase NASAL SPRAY 50MCG*] 2 spray BOTH NARES DAILY #1 btl Patient Education Materials: Rhinosinusitis (ED) Referrals: Too Frank NP [Primary Care Provider] - Additional Instructions: Use saline spray in nose as much as needed Use intranasal steroid one spray each nostril twice a day Take antibiotic in 3 days if no improvement, take twice a day for 10 days Take Tylenol or ibuprofen for headache every 6 hours Follow up with primary in 5 days if no improvement Return to ED if develop any new or worsening symptoms - Billing Disposition and Condition Condition: GOOD Disposition: Home
[2019-05-02 18:39] VITALS: BP 140/78
== END 2019-05-02 18:39 | disposition home or self-care (01) ==
LOC: ED 17:38
DX: J32.9 Chronic sinusitis, unspecified (principal); R05 Cough
CPT/HCPCS: 99282